=== PATIENT | male | born 1960 | race Caucasian/White ===

== ENCOUNTER 2016-12-16 13:06 | Inpatient (IN) | payer OTHER ==
[2016-12-16] VITALS (9 sets, daily range): BP systolic 130–142; BP diastolic 75–85; PULSE 97–112; TEMP 37–37.8; O2SAT 96–98; BMI 28.7
[~2016-12-16] VITALS: Ht 170.2 cm; Wt 83.1 kg
[2016-12-16] MEDS ORDERED: LIDOCAINE/EPINEPHRINE 1% 20 ML VIAL INFIL ONE (13:30)
--- NOTE | 2016-12-16 13:45 | EMERGENCY ROOM VISIT NOTE ---
History First contact with patient: 13:22 Chief Complaint: ELBOW PAIN/INJURY Stated Complaint: L ELBOW INFECTION/PAINB History of Present Illness The patient is a 56 year old male who presents to the Emergency Room with complaints of left arm infection started about one week ago. 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 He initially was treating the scratch at home with antibiotic ointment, but then his arm started to become swollen and more painful. He did see his PCP 2 days ago, who placed him on Bactrim. Patient has had 5 doses of the Bactrim, and states no improvement, and now the swelling has spread down to his fingers. He describes the pain as aching, constant, worse with movement, 5/10. He has taken Advil for the pain which does help. He is unable to fully straighten the elbow due to pain and swelling. He has noticed some drainage from the elbow wound that he describes as "pus." He denies fevers/chills, nausea/vomiting, dizziness or passing out, chest pain, shortness of breath, numbness or tingling in the arm. His tetanus is not up to date. He denies any diagnosed medical problems, but does state "it's been a while since I've been checked for anything." Review of Systems A complete 10 point review of systems was reviewed with the patient with pertinent positives and negatives as per history of present illness. All else were negative. Past Medical/Surgical History Medical Problems: (1) Failure of outpatient treatment (2) Left arm cellulitis Social History Smoking Status: Never Smoker Current/Historical Medications No Active Prescriptions or Reported Meds Allergies Coded Allergies: No Known Allergies (Unverified , 12/16/16) Physical Exam Vital Signs Date Time Temp Pulse Resp B/P (MAP) Pulse Ox O2 Delivery O2 Flow Rate FiO2 12/16/16 15:10 82 16 134/72 96 Room Air 12/16/16 14:13 96 Room Air 12/16/16 13:11 37.1 113 18 129/77 96 Room Air Physical Exam CONSTITUTIONAL: No acute distress. Well appearing and well nourished. Alert and oriented X 4 with normal affect. HEENT: Normocephalic, atraumatic. Pupils equal, round and reactive to light, EOMI. TMs normal. Pharynx normal. NECK: Supple, full active range of motion without discomfort. RESPIRATORY: Clear to auscultation bilaterally with no wheezing, crackles, rhonchi or stridor. Equal expansion bilaterally. CARDIOVASCULAR: Regular rate and rhythm with no murmurs, rubs or gallops. Normal peripheral perfusion. No edema. GASTROINTESTINAL: Soft, nontender, nondistended. Bowel sounds present in all quadrants. MUSCULOSKELETAL: There is circumferential cellulitis noted to the entire left arm from the axilla extending to the wrist, 2+ pitting edema in the entire extremity, swelling extends to the fingers with decreased range of motion and unable to make a closed fist. Significant erythema and swelling with fluctuance over the posterior elbow and surrounding tissues, scabbed abrasion noted approximately 3 finger breadths below the elbow joint. No active drainage noted at this time. Most tender over the elbow joint and tracking down the forearm anteriorly. 2+ radial pulses, brisk cap refill, normal sensation. Increased pain with flexion of the elbow, unable to fully extend the elbow due to pain and stiffness. INTEGUMENTARY: No rash or other significant dermatologic conditions noted. NEUROLOGIC: Cranial nerves II-XII grossly intact. No focal neurologic deficits noted. Medical Decision & Procedures ER Provider Diagnostic Interpretation: LEFT ELBOW 3 VIEWS CLINICAL HISTORY: Cellulitis. FINDINGS: 3 views of the left elbow are obtained. No prior studies are available for comparison at the time of dictation. The skeletal structures are well mineralized. No fracture is seen. The joint spaces are maintained. No joint effusion is identified. Enthesophytes are noted along the lateral humeral epicondyle. Spurring is present lung the medial joint space. Soft tissue edema is present around the elbow, greatest dorsally. No subcutaneous gas is suggested. IMPRESSION: Soft tissues swelling with no acute bony abnormality seen in the left elbow. Laboratory Results 12/16/16 13:50 Red Blood Count 4.61, Mean Corpuscular Volume 80.9, Mean Corpuscular Hemoglobin 29.1, Mean Corpuscular Hemoglobin Concent 35.9, Mean Platelet Volume 8.8, Neutrophils (%) (Auto) 85.4, Lymphocytes (%) (Auto) 4.9, Monocytes (%) (Auto) 9.2, Eosinophils (%) (Auto) 0.0, Basophils (%) (Auto) 0.0, Neutrophils # (Auto) 18.27, Lymphocytes # (Auto) 1.06, Monocytes # (Auto) 1.98, Eosinophils # (Auto) 0.01, Basophils # (Auto) 0.01 12/16/16 13:50 Test 12/16/16 13:50 White Blood Count 21.44 K/uL (4.8-10.8) Red Blood Count 4.61 M/uL (4.7-6.1) Hemoglobin 13.4 g/dL (14.0-18.0) Hematocrit 37.3 % (42-52) Mean Corpuscular Volume 80.9 fL (80-100) Mean Corpuscular Hemoglobin 29.1 pg (25-34) Mean Corpuscular Hemoglobin Concent 35.9 g/dl (32-36) Platelet Count 326 K/uL (130-400) Mean Platelet Volume 8.8 fL (7.4-10.4) Neutrophils (%) (Auto) 85.4 % Lymphocytes (%) (Auto) 4.9 % Monocytes (%) (Auto) 9.2 % Eosinophils (%) (Auto) 0.0 % Basophils (%) (Auto) 0.0 % Neutrophils # (Auto) 18.27 K/uL (1.4-6.5) Lymphocytes # (Auto) 1.06 K/uL (1.2-3.4) Monocytes # (Auto) 1.98 K/uL (0.11-0.59) Eosinophils # (Auto) 0.01 K/uL (0-0.5) Basophils # (Auto) 0.01 K/uL (0-0.2) RDW Standard Deviation 34.3 fL (36.4-46.3) RDW Coefficient of Variation 11.8 % (11.5-14.5) Immature Granulocyte % (Auto) 0.5 % Immature Granulocyte # (Auto) 0.11 K/uL (0.00-0.02) Microcytosis PRESENT Erythrocyte Sedimentation Rate 58 mm/hr (0-14) Prothrombin Time 12.0 SECONDS (9.0-12.0) Prothromb Time International Ratio 1.1 (0.9-1.1) Activated Partial Thromboplast Time 30.3 SECONDS (21.0-31.0) Partial Thromboplastin Ratio 1.2 Anion Gap 15.0 mmol/L (3-11) Est Creatinine Clear Calc Drug Dose 88.9 ml/min Estimated GFR () 100.9 Estimated GFR (Non- 87.1 BUN/Creatinine Ratio 19.9 (10-20) Lactic Acid Level 1.6 mmol/L (0.4-2.0) Calcium Level 8.7 mg/dl (8.5-10.1) Total Bilirubin 0.7 mg/dl (0.2-1) Direct Bilirubin 0.3 mg/dl (0-0.2) Aspartate Amino Transf (AST/SGOT) 13 U/L (15-37) Alanine Aminotransferase (ALT/SGPT) 17 U/L (12-78) Alkaline Phosphatase 90 U/L (45-117) C-Reactive Protein 31.20 mg/dl (0-0.29) Total Protein 7.1 gm/dl (6.4-8.2) Albumin 2.3 gm/dl (3.4-5.0) Beta-Hydroxybutyric Acid 45.57 mg/dL (0.2-2.81) Medications Administered Medications (Trade) Dose Ordered Sig/Rj Route Start Time Stop Time Status Last Admin Dose Admin Sodium Chloride 2,000 ml @ 999 mls/hr Q2H1M STAT IV 12/16/16 14:20 12/16/16 16:20 DC 12/16/16 15:07 999 MLS/HR Vancomycin HCl 2000 mg/Sodium Chloride 540 ml @ 200 mls/hr 1435 STAT IV 12/16/16 14:35 12/16/16 17:16 DC 12/16/16 15:07 200 MLS/HR Diphtheria/ Pertussis/Tetanus Vacc (Adacel Inj) 0.5 ml ONCE ONCE IM. 12/16/16 15:45 12/16/16 15:46 DC 12/16/16 17:11 0.5 ML Piperacillin Sod/ Tazobactam Sod (Zosyn Iv) 4.5 gm NOW STAT IV 12/16/16 15:37 12/16/16 15:39 DC 12/16/16 18:58 4.5 GM Procedure Verbal consent was obtained to perform the procedure. After saline and Betadine cleansing and 1 mL of 1% buffered lidocaine with epinephrine anesthesia , a 2cm incision was made over the most fluctuant area over the posterior elbow with a number 15 scalpel blade. A large amount of bloody and purulent material was released with more expressed by pressure. A swab was obtained for culture. 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 Copious purulent drainage from the wound noted, and continues to drain significantly when pressure is applied to the forearm. Bedside ultrasound of the forearm concerning for fluid collections tracking along the anterior forearm as well. Drainage was ceased at this point given the large amount of purulence and concern for deeper involvement. The cavity was not irrigated or packed. An occlusive sterile dressing was applied to the incision. Plans to consult orthopedic surgery for possible surgical washout given the extensive infection. The patient tolerated this procedure well. ECG Indication: tachycardia Rate (beats per minute): 109 Rhythm: sinus tachycardia Findings: no acute ischemic change, no ectopy Comparison ECG Date: no prior available Medical Decision CC: Patient presenting with complaint of left arm pain and swelling Interpretation of Labs: Significant leukocytosis with left shift, not anemic, significant hyperglycemia with presence of serum ketones which may be suggestive of undiagnosed diabetes (HgbA1c pending), hyponatremia and hypochloremia, with upper limits of normal potassium (5.1), normal renal function, normal liver function. Significantly elevated inflammatory markers. Lactic acid level within normal limits. Blood cultures and wound culture pending. Differential Diagnosis: Includes, but not limited to cellulitis, abscess, osteomyelitis, tenosynovitis, necrotizing fasciitis, pseudomonal infection, new- onset diabetes, sepsis Medication Reconciliation: I attest that I have personally reviewed the patient' s current medication list. Vital signs review: I reviewed the patient's vital signs and interpret them as follows: T: Afebrile; BP: normotensive; HR: Tachycardic; RR: Within normal limits; Pulse Ox: Within normal limits on room air. Summary: Patient was evaluated at bedside, history of physical exam performed. Patient is alert and cooperative, nontoxic appearing and in no distress. Patient noted to be tachycardic on initial vital signs. Circumferential cellulitis of the entire left arm extending from the axilla to the wrist with pitting edema, most significant over the posterior elbow joint with fluctuance. No palpable crepitus, pain out of proportion, neurovascular compromise, or history of rapid spreading to suspect necrotizing fasciitis and patient is generally well-appearing. Orders were placed at bedside for labs including lactic acid and blood cultures , x-rays of the entire left arm to evaluate for cellulitis and possible retained foreign body. Labs concerning for significant leukocytosis with left shift as well as significantly elevated inflammatory markers. I also suspect undiagnosed diabetes given significant hyperglycemia and serum ketones. HgbA1c pending. X-rays of the entire left arm showed diffuse soft tissue swelling without concerns for osteomyelitis, air, or foreign body. Bedside ultrasound performed to identify fluid collection. I & D performed, given the significant amount of purulent drainage and apparently tracking into the forearm, decision was made to consult orthopedic surgery for possible washout. See procedure note for more details. Based on physical exam, I do also have some concern for infection into the elbow joint. IV vancomycin and Zosyn ordered for broad coverage. Blood cultures and wound culture collected prior to antibiotics being given. Tetanus was updated. Patient discussed with Dr. Argueta, who also evaluated the patient and agrees with my assessment and plan. I spoke with Dr. Folres, orthopedic surgery, on the phone at 4 PM and relayed to him the patient's clinical condition and my concern for significant infection of the left arm. He requests hospitalist admission and he will come to evaluate the patient for possible surgical intervention today. Patient reassessed multiple times throughout ED stay, he remained in stable condition without any complaints. I did discuss with the patient and his the plan for admission, patient is agreeable. Patient will be admitted to the hospitalist service, Dr. Joseph, with possible plans by Dr. Flores for surgical washout today. Impression Primary Impression: Left arm cellulitis Departure Information Dispostion Admitted as an inpatient Condition FAIR Prescriptions No Active Prescriptions or Reported Meds Referrals No Doctor, Assigned (PCP) Patient Instructions My [facility]
[2016-12-16 14:07] LABS: HEMATOCRIT 37.3 % (42-52); MEAN CELL VOLUME 80.9 fL (80-100); MEAN CORPUSCULAR HEMOGLOBIN 29.1 pg (25-34); MEAN CORPUSCULAR HGB CONC 35.9 g/dl (32-36); MEAN PLATELET VOLUME 8.8 fL (7.4-10.4); PLATELET COUNT 326 K/uL (130-400); RED BLOOD COUNT 4.61 M/uL (4.7-6.1); WHITE BLOOD COUNT 21.44 K/uL (4.8-10.8)
[2016-12-16 14:17] LABS: INR 1.1 (0.9-1.1); PARTIAL THROMBOPLASTIN RATIO 1.2
[2016-12-16] MEDS ORDERED: SODIUM CHLORIDE 0.9% 1000ML 2,000 ML IV STA (14:20)
[2016-12-16] MEDS ORDERED: VANCOMYCIN INJ 2,000 MG in SODIUM CHLORIDE 0.9% 500ML 500 ML IV STA (14:35)
[2016-12-16 14:36] LABS: BASO ABS # 0.01 K/uL (0-0.2); COMPLETE YES; IG% 0.5 %; LYMPH % 4.9 %; LYMPH ABS # 1.06 K/uL (1.2-3.4); MICROCYTOSIS PRESENT; MONO % 9.2 %; NEUT % 85.4 %
[2016-12-16 14:45] LABS: BUN/CREATININE RATIO 19.9 (10-20); C-REACTIVE PROTEIN 31.2 mg/dl (0-0.29); CALCIUM 8.7 mg/dl (8.5-10.1); CREATININE 0.98 mg/dl (0.60-1.40); POTASSIUM 5.1 mmol/L (3.5-5.1)
--- NOTE | 2016-12-16 14:52 | DIAGNOSTIC IMAGING REPORT ---
LEFT ELBOW 3 VIEWS CLINICAL HISTORY: Cellulitis. FINDINGS: 3 views of the left elbow are obtained. No prior studies are available for comparison at the time of dictation. The skeletal structures are well mineralized. No fracture is seen. The joint spaces are maintained. No joint effusion is identified. Enthesophytes are noted along the lateral humeral epicondyle. Spurring is present lung the medial joint space. Soft tissue edema is present around the elbow, greatest dorsally. No subcutaneous gas is suggested. IMPRESSION: Soft tissues swelling with no acute bony abnormality seen in the left elbow. Electronically signed by: Jordan Frye M.D. 12/16/2016 2:50 PM Dictated Date/Time: 12/16/2016 2:49 PM
[2016-12-16 15:03] LABS: BETA-HYDROXYBUTYRATE 45.57 mg/dL (0.2-2.81)
--- NOTE | 2016-12-16 15:04 | DIAGNOSTIC IMAGING REPORT ---
LEFT HUMERUS 2 VIEWS CLINICAL HISTORY: Cellulitis. FINDINGS: AP and lateral views of the left humerus are obtained. No prior studies are available for comparison at the time of dictation. The skeletal structures are well mineralized. There is no radiographic evidence of left humeral fracture. Mild arthritic change is present in the greater tuberosity of the humeral head. The left elbow and shoulder joints are grossly maintained. Soft tissue edema is noted. No subcutaneous gas is identified. IMPRESSION: Soft tissue swelling with no radiographic evidence of left humeral fracture. Electronically signed by: Jordan Frye M.D. 12/16/2016 3:03 PM Dictated Date/Time: 12/16/2016 3:02 PM
--- NOTE | 2016-12-16 15:15 | DIAGNOSTIC IMAGING REPORT ---
LEFT HAND 3 VIEWS CLINICAL HISTORY: Cellulitis. FINDINGS: 3 views of the left hand are obtained. No prior studies are available for comparison at the time of dictation. The skeletal structures are well mineralized. No fracture is seen. The joint spaces of the hand are well-maintained. Soft tissue edema is noted, greatest dorsally. No subcutaneous gas is seen. IMPRESSION: Soft tissue swelling with no acute bony abnormality seen in the left hand. Electronically signed by: Jordan Frye M.D. 12/16/2016 3:13 PM Dictated Date/Time: 12/16/2016 3:13 PM
--- NOTE | 2016-12-16 15:16 | DIAGNOSTIC IMAGING REPORT ---
LEFT FOREARM 2 VIEWS CLINICAL HISTORY: Cellulitis. FINDINGS: AP and lateral views of the left forearm are obtained. No prior studies are available for comparison at the time of dictation. The Skeletal structures are well mineralized. There is no radiographic evidence of left forearm fracture. The elbow and wrist joints are grossly preserved. Soft tissue edema is present in the left forearm. No subcutaneous gas is identified. IMPRESSION: Soft tissue swelling with no acute bony abnormality seen in the left forearm. Electronically signed by: Jordan Frye M.D. 12/16/2016 3:15 PM Dictated Date/Time: 12/16/2016 3:14 PM
[2016-12-16] MEDS ORDERED: PIPERACILLIN/TAZOBACTAM 4.5 GM/100ML D5W IV STA (15:37)
[2016-12-16] MEDS ORDERED: DIPHTHERIA/TETANUS/PERTUSSIS 0.5 ML SYR/VIAL IM. ONE (15:45)
--- NOTE | 2016-12-16 16:00 | EMERGENCY ROOM VISIT NOTE ---
ED Visit Note First contact with patient: 13:22 56-year-old male with infection of his left elbow was fully evaluated by Rhonda Miller NP. Please see her note. I also independently evaluated the patient. I &D of the elbow reveals a large amount of free flowing pus. The patient's white count is elevated. The patient will require admission and orthopedic evaluation. The patient was placed on IV antibiotics here in the ED after blood and elbow cultures were obtained.
[2016-12-16] MEDS ORDERED: TRAMADOL HCL 50 MG TAB PO PRN ×2 (16:45)
[2016-12-16] MEDS ORDERED: KETOROLAC TROMETHAMINE 30 MG/ML VIAL IV PRN (16:45)
[2016-12-16] MEDS ORDERED: ZOLPIDEM TARTRATE 5 MG TAB PO PRN (16:45)
[2016-12-16] MEDS ORDERED: ONDANSETRON INJ 2 MG/ML 2 ML VIAL IV PRN ×3 (16:45→20:00)
--- NOTE | 2016-12-16 17:41 | History and Physical ---
History & Physical Date Dec 16, 2016. 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 He does not have a known history of diabetes. He notes chills. No complaints of fevers Past Medical/Surgical History Medical Problems: (1) Failure of outpatient treatment (2) Left arm cellulitis Additional History Hepatic Disease: No Endocrine Disorder: No Kidney Disease: No Hypertension: No Heart Disease: No Bleeding Tendencies: No Infectious Diseases: No Allergies Coded Allergies: No Known Allergies (Unverified , 12/16/16) Home Medications No Active Prescriptions or Reported Meds Physical Examination Skin: warm/dry Eyes: normal inspection ENT: normal ENT inspection Respiratory/Chest: no respiratory distress Addiitonal Comments: Left forearm exam shows supple range of motion of the elbow in a short arc without significant discomfort. He has fluctuance and swelling over the posterior aspect of the elbow both in the olecranon bursa as well as in the mid aspect of the forearm extending to the anterior aspect of the forearm. He superficial abrasions are seen over the forearm, has surrounding erythema. He can flex and extend the wrist without discomfort. His negative knavel signs. He has axillary lymphadenopathy Diagnosis Left forearm abscess undiagnosed diabetes Plan of Treatment The patient exhibits evidence of abscess with gross purulent drainage from the posterior elbow consistent with possible septic workup bursitis as well as forearm abscess. He has a white count of 21 and likely has undiagnosed diabetes with sugars in the 400 range. My recommendation for medical admission for control of his sugars and plan for surgical irrigation and debridement shortly. I discussed risks benefits and reasonable outcomes, I discussed possibility of further surgery needed tendon nerve injury etc. is agreeable to proceed with surgical intervention
[2016-12-16] MEDS ORDERED: PIPERACILL/TAZOBAC CONSULT ACTIVE PRN (18:00)
[2016-12-16] MEDS ORDERED: VANCOMYCIN CONSULT ACTIVE PRN (18:00)
--- NOTE | 2016-12-16 18:13 | History and Physical ---
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 He used topical antibiotic ointment over the next week however, about one week ago he noted that the arm was starting to become flamed, round, warm and swollen. It is his PCP 2 days ago, who placed him on Bactrim, which she's had 5 doses so far without improvement, and notes that the swelling is now extended further down his arm. The pain is constant, aching and worse with movement. Advil does help with some relief. He is not able to fully extend his elbow, and he has noted some drainage from the elbow itself. Past Medical/Surgical History None Family History Noncontributory Social History Smoking Status: Never Smoker Smokeless Tobacco Use: No Alcohol Use: socially Drug Use: none Marital Status: Housing status: lives with family Occupational Status: employed Immunizations History of Influenza Vaccine: Unknown History of Tetanus Vaccine?: Yes (given today in the ED.) History of Pneumococcal: Unknown History of Hepatitis B Vaccine: Unknown Multi-Drug Resistant Organisms History of MDRO: No Allergies Coded Allergies: No Known Allergies (Unverified , 12/16/16) Home Medications No Active Prescriptions or Reported Meds Review of Systems The patient denies chest pain, palpitations, shortness of breath, cough, lower extremity swelling, sore throat, fevers, chills, sweats, weight change, fatigue , nausea, vomiting, abdominal pain, pelvic pain, blood in urine or stool, dysuria, urinary frequency or urgency, lightheadedness, dizziness, headache, memory loss, imbalance, focal or generalized weakness, numbness or tingling in legs, generalized arthralgias or myalgias, back or neck pain, night sweats, or allergy symptoms. The review of systems is otherwise negative other than for that already noted above, and at least 10 systems have been reviewed. Physical Exam Vital Signs Date Time Temp Pulse Resp B/P (MAP) Pulse Ox O2 Delivery O2 Flow Rate FiO2 12/16/16 17:40 37.1 112 20 130/75 (93) 96 Room Air 12/16/16 17:20 87 20 55/96 100 12/16/16 15:10 82 16 134/72 96 Room Air 12/16/16 14:13 96 Room Air 12/16/16 13:11 37.1 113 18 129/77 96 Room Air The patient is awake, well-developed and adequately nourished, alert and oriented 3, normocephalic and atraumatic, lying in bed and in no acute distress. HEENT--PERRL, EOMI, mucous membranes and oropharynx dry, face is flushed Neck--supple, no JVD or bruits, thyroid normal, trachea midline, no adenopathy. Heart--normal S1 and S2, no extra beats, no murmurs, rubs or gallops. Lungs--clear bilaterally with good air movement, no respiratory distress, no accessory muscle use. Abdomen--normal bowel sounds and soft, nontender and nondistended, no hernias or masses, no organomegaly. Extremities/Dermatologic--bilateral lower extremity and right upper extremity no cyanosis, clubbing or edema. Left upper extremity with swelling, redness, warmth, tenderness left forearm with draining lesion at the elbow. Neurologic--cranial nerves II through XII grossly intact, motor and sensory examination normal. Rheumatologic--decreased flexion and extension of left upper extremity Psychiatric--normal affect. Diagnostics Laboratory Results Results Past 24 Hours Test 12/16/16 13:50 Range/Units White Blood Count 21.44 4.8-10.8 K/uL Red Blood Count 4.61 4.7-6.1 M/uL Hemoglobin 13.4 14.0-18.0 g/dL Hematocrit 37.3 42-52 % Mean Corpuscular Volume 80.9 80-100 fL Mean Corpuscular Hemoglobin 29.1 25-34 pg Mean Corpuscular Hemoglobin Concent 35.9 32-36 g/dl Platelet Count 326 130-400 K/uL Mean Platelet Volume 8.8 7.4-10.4 fL Neutrophils (%) (Auto) 85.4 % Lymphocytes (%) (Auto) 4.9 % Monocytes (%) (Auto) 9.2 % Eosinophils (%) (Auto) 0.0 % Basophils (%) (Auto) 0.0 % Neutrophils # (Auto) 18.27 1.4-6.5 K/uL Lymphocytes # (Auto) 1.06 1.2-3.4 K/uL Monocytes # (Auto) 1.98 0.11-0.59 K/uL Eosinophils # (Auto) 0.01 0-0.5 K/uL Basophils # (Auto) 0.01 0-0.2 K/uL RDW Standard Deviation 34.3 36.4-46.3 fL RDW Coefficient of Variation 11.8 11.5-14.5 % Immature Granulocyte % (Auto) 0.5 % Immature Granulocyte # (Auto) 0.11 0.00-0.02 K/uL Microcytosis PRESENT Erythrocyte Sedimentation Rate 58 0-14 mm/hr Prothrombin Time 12.0 9.0-12.0 SECONDS Prothromb Time International Ratio 1.1 0.9-1.1 Activated Partial Thromboplast Time 30.3 21.0-31.0 SECONDS Partial Thromboplastin Ratio 1.2 Sodium Level 127 136-145 mmol/L Potassium Level 5.1 3.5-5.1 mmol/L Chloride Level 91 98-107 mmol/L Carbon Dioxide Level 21 21-32 mmol/L Anion Gap 15.0 3-11 mmol/L Blood Urea Nitrogen 20 7-18 mg/dl Creatinine 0.98 0.60-1.40 mg/dl Est Creatinine Clear Calc Drug Dose 88.9 ml/min Estimated GFR () 100.9 Estimated GFR (Non- 87.1 BUN/Creatinine Ratio 19.9 10-20 Random Glucose 393 70-99 mg/dl Lactic Acid Level 1.6 0.4-2.0 mmol/L Calcium Level 8.7 8.5-10.1 mg/dl Total Bilirubin 0.7 0.2-1 mg/dl Direct Bilirubin 0.3 0-0.2 mg/dl Aspartate Amino Transf (AST/SGOT) 13 15-37 U/L Alanine Aminotransferase (ALT/SGPT) 17 12-78 U/L Alkaline Phosphatase 90 45-117 U/L C-Reactive Protein 31.20 0-0.29 mg/dl Total Protein 7.1 6.4-8.2 gm/dl Albumin 2.3 3.4-5.0 gm/dl Beta-Hydroxybutyric Acid 45.57 0.2-2.81 mg/dL Microbiology Results 12/16/16 Blood Culture, Received Pending 12/16/16 Blood Culture, Received Pending 12/16/16 Gram Stain, Received Pending 12/16/16 Wound Culture, Received Pending Diagnostic Radiology Patient Name: TARI BERRY Unit Number: [id number] Dictated: 12/16/161501 Transcribed: 12/16/161501 EV Printed Date/Time: [~ rep prt dt]/[~ rep prt tm] [~ rep ct labl] - [~ rep ct ivnm] [facility] [place] [address] Dictated: 12/16/161501 Transcribed: 12/16/16 150 EV Printed Date/Time: [~ rep prt dt]/[~ rep prt tm] [~ rep ct labl] - [~ rep ct ivnm] [~ rep ct add3]] LEFT HUMERUS 2 VIEWS CLINICAL HISTORY: Cellulitis. FINDINGS: AP and lateral views of the left humerus are obtained. No prior studies are available for comparison at the time of dictation. The skeletal structures are well mineralized. There is no radiographic evidence of left humeral fracture. Mild arthritic change is present in the greater tuberosity of the humeral head. The left elbow and shoulder joints are grossly maintained. Soft tissue edema is noted. No subcutaneous gas is identified. IMPRESSION: Soft tissue swelling with no radiographic evidence of left humeral fracture. Electronically signed by: Jordan Frye M.D. 12/16/2016 3:03 PM Dictated Date/Time: 12/16/2016 3:02 PM The status of this report is Signed. Draft = Not yet reviewed or approved by Radiologist. Signed = Reviewed and approved by Radiologist. <AttendingPhy></AttendingPhy> <FamilyPhy>No Doctor, Assigned</FamilyPhy> < PrimaryPhy>No Doctor, Assigned</PrimaryPhy> <UnitNumber>[id number]</UnitNumber> <VisitNumber>[id number]</VisitNumber> <PatientName>TARI BERRY</PatientName > <DateOfBirth>1960</DateOfBirth> <Location>[facility]</Location> <ServiceDate> 12/16/16</ServiceDate> <MNE>ESINDI</MNE> <OrderingPhy>Rhonda Miller</ OrderingPhy> <OrderingPhyMNE>f rep ord dr garcia</OrderingPhyMNE> <DictatingPhyMNE> f rep dict dr garcia</DictatingPhyMNE> <CCListMNE>f rep ct mne</CCListMNE> < AdmittingPhyMNE>f pt admit dr garcia</AdmittingPhyMNE> <AttendingPhyMNE>f pt attend dr garcia</AttendingPhyMNE> <ConsultingPhyMNE>f pt consult dr garcia</ConsultingPhyMNE> <FamilyPhyMNE>f pt fam dr garcia</FamilyPhyMNE> <OtherPhyMNE>f pt other dr garcia</OtherPhyMNE> < PrimaryPhyMNE>f pt prim care dr garcia</PrimaryPhyMNE> <ReferringPhyMNE>f pt referring dr garcia</ReferringPhyMNE> Patient Name: TARI BERRY Unit Number: [id number] Dictated: 12/16/161512 Transcribed: 12/16/161512 EV Printed Date/Time: [~ rep prt dt]/[~ rep prt tm] [~ rep ct labl] - [~ rep ct ivnm] [facility] Radiology Department [place] [id number] Dictated: 12/16/161512 Transcribed: 12/16/161512 EV Printed Date/Time: [~ rep prt dt]/[~ rep prt tm] [~ rep ct labl] - [~ rep ct ivnm] [~ rep ct add3]] LEFT HAND 3 VIEWS CLINICAL HISTORY: Cellulitis. FINDINGS: 3 views of the left hand are obtained. No prior studies are available for comparison at the time of dictation. The skeletal structures are well mineralized. No fracture is seen. The joint spaces of the hand are well-maintained. Soft tissue edema is noted, greatest dorsally. No subcutaneous gas is seen. IMPRESSION: Soft tissue swelling with no acute bony abnormality seen in the left hand. Electronically signed by: Jordan Frye M.D. 12/16/2016 3:13 PM Dictated Date/Time: 12/16/2016 3:13 PM The status of this report is Signed. Draft = Not yet reviewed or approved by Radiologist. Signed = Reviewed and approved by Radiologist. <AttendingPhy></AttendingPhy> <FamilyPhy>No Doctor, Assigned</FamilyPhy> < PrimaryPhy>No Doctor, Assigned</PrimaryPhy> <UnitNumber>[id number]</UnitNumber> <VisitNumber>[id number]</VisitNumber> <PatientName>TARI BERRY</PatientName > <DateOfBirth>1960</DateOfBirth> <Location>[facility]</Location> <ServiceDate> 12/16/16</ServiceDate> <MNE>ESINDI</MNE> <OrderingPhy>Rhonda Miller</ OrderingPhy> <OrderingPhyMNE>f rep ord dr garcia</OrderingPhyMNE> <DictatingPhyMNE> f rep dict dr garcia</DictatingPhyMNE> <CCListMNE>f rep ct mne</CCListMNE> < AdmittingPhyMNE>f pt admit dr garcia</AdmittingPhyMNE> <AttendingPhyMNE>f pt attend dr garcia</AttendingPhyMNE> <ConsultingPhyMNE>f pt consult dr garcia</ConsultingPhyMNE> <FamilyPhyMNE>f pt fam dr agrcia</FamilyPhyMNE> <OtherPhyMNE>f pt other dr garcia</OtherPhyMNE> < PrimaryPhyMNE>f pt prim care dr garcia</PrimaryPhyMNE> <ReferringPhyMNE>f pt referring dr garcia</ReferringPhyMNE> Patient Name: TARI BERRY Unit Number: [id number] Dictated: 12/16/161513 Transcribed: 12/16/161513 EV Printed Date/Time: [~ rep prt dt]/[~ rep prt tm] [~ rep ct labl] - [~ rep ct ivnm] [facility] [place] [address] Dictated: 12/16/161513 Transcribed: 12/16/161513 EV Printed Date/Time: [~ rep prt dt]/[~ rep prt tm] [~ rep ct labl] - [~ rep ct ivnm] [~ rep ct add3]] LEFT FOREARM 2 VIEWS CLINICAL HISTORY: Cellulitis. FINDINGS: AP and lateral views of the left forearm are obtained. No prior studies are available for comparison at the time of dictation. The Skeletal structures are well mineralized. There is no radiographic evidence of left forearm fracture. The elbow and wrist joints are grossly preserved. Soft tissue edema is present in the left forearm. No subcutaneous gas is identified. IMPRESSION: Soft tissue swelling with no acute bony abnormality seen in the left forearm. Electronically signed by: Jordan Frye M.D. 12/16/2016 3:15 PM Dictated Date/Time: 12/16/2016 3:14 PM The status of this report is Signed. Draft = Not yet reviewed or approved by Radiologist. Signed = Reviewed and approved by Radiologist. <AttendingPhy></AttendingPhy> <FamilyPhy>No Doctor, Assigned</FamilyPhy> < PrimaryPhy>No Doctor, Assigned</PrimaryPhy> <UnitNumber>[id number]</UnitNumber> <VisitNumber>[id number]</VisitNumber> <PatientName>TARI BERRY</PatientName > <DateOfBirth>1960</DateOfBirth> <Location>[facility]</Location> <ServiceDate> 12/16/16</ServiceDate> <MNE>ESINDI</MNE> <OrderingPhy>Rhonda Miller</ OrderingPhy> <OrderingPhyMNE>f rep ord dr garcia</OrderingPhyMNE> <DictatingPhyMNE> f rep dict dr garcia</DictatingPhyMNE> <CCListMNE>f rep ct mne</CCListMNE> < AdmittingPhyMNE>f pt admit dr garcia</AdmittingPhyMNE> <AttendingPhyMNE>f pt attend dr garcia</AttendingPhyMNE> <ConsultingPhyMNE>f pt consult dr garcia</ConsultingPhyMNE> <FamilyPhyMNE>f pt fam dr garcia</FamilyPhyMNE> <OtherPhyMNE>f pt other dr garcia</OtherPhyMNE> < PrimaryPhyMNE>f pt prim care dr garcia</PrimaryPhyMNE> <ReferringPhyMNE>f pt referring dr garcia</ReferringPhyMNE> Patient Name: TARI BERRY Unit Number: [id number] Dictated: 12/16/161448 Transcribed: 12/16/161448 EV Printed Date/Time: [~ rep prt dt]/[~ rep prt tm] [~ rep ct labl] - [~ rep ct ivnm] [facility] Radiology Department [place] [id number] Dictated: 12/16/161448 Transcribed: 12/16/161448 EV Printed Date/Time: [~ rep prt dt]/[~ rep prt tm] [~ rep ct labl] - [~ rep ct ivnm] [~ rep ct add3]] LEFT ELBOW 3 VIEWS CLINICAL HISTORY: Cellulitis. FINDINGS: 3 views of the left elbow are obtained. No prior studies are available for comparison at the time of dictation. The skeletal structures are well mineralized. No fracture is seen. The joint spaces are maintained. No joint effusion is identified. Enthesophytes are noted along the lateral humeral epicondyle. Spurring is present lung the medial joint space. Soft tissue edema is present around the elbow, greatest dorsally. No subcutaneous gas is suggested. IMPRESSION: Soft tissues swelling with no acute bony abnormality seen in the left elbow. Electronically signed by: Jordan Frye M.D. 12/16/2016 2:50 PM Dictated Date/Time: 12/16/2016 2:49 PM The status of this report is Signed. Draft = Not yet reviewed or approved by Radiologist. Signed = Reviewed and approved by Radiologist. <AttendingPhy></AttendingPhy> <FamilyPhy>No Doctor, Assigned</FamilyPhy> < PrimaryPhy>No Doctor, Assigned</PrimaryPhy> <UnitNumber>[id number]</UnitNumber> <VisitNumber>[id number]</VisitNumber> <PatientName>TARI BERRY</PatientName > <DateOfBirth>1960</DateOfBirth> <Location>[facility]</Location> <ServiceDate> 12/16/16</ServiceDate> <MNE>ESINDI</MNE> <OrderingPhy>Rhonda Miller</ OrderingPhy> <OrderingPhyMNE>f rep ord dr garcia</OrderingPhyMNE> <DictatingPhyMNE> f rep dict dr garcia</DictatingPhyMNE> <CCListMNE>f rep ct mne</CCListMNE> < AdmittingPhyMNE>f pt admit dr garcia</AdmittingPhyMNE> <AttendingPhyMNE>f pt attend dr garcia</AttendingPhyMNE> <ConsultingPhyMNE>f pt consult dr garcia</ConsultingPhyMNE> <FamilyPhyMNE>f pt fam dr garcia</FamilyPhyMNE> <OtherPhyMNE>f pt other dr garcia</OtherPhyMNE> < PrimaryPhyMNE>f pt prim care dr garcia</PrimaryPhyMNE> <ReferringPhyMNE>f pt referring dr garcia</ReferringPhyMNE> EKG EKG shows sinus tachycardia 109 bpm, no acute ST-T changes. Impression Assessment and Plan Left upper extremity cellulitis--patient be admitted to the medical surgical floor, he will continue the vancomycin IV and Zosyn IV begun emergency department. Replacement IV fluids for rehydration, we'll consult Dr. Castle from orthopedics assess for possible surgical drainage. Patient did receive tetanus shot emergency department. Diabetes mellitus/hyperglycemia--blood sugar upon admission was 393. We'll check a hemoglobin A1c. We'll place on Accu-Cheks before meals and at bedtime with NovoLog coverage per scale. If testing reveals the patient is diabetic, he will need education for testing and diet and exercise. Pseudohyponatremia--secondary to elevated blood sugar. Follow serial with hydration and treatment of blood sugar. 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 Y/N: Yes Risk Level: Moderate Given or contraindicated: SCD's Social Service Consult None Apply
[2016-12-16] MEDS ORDERED: DEXTROSE 50% 50 ML SYR IV PRN (18:15)
[2016-12-16] MEDS ORDERED: GLUCAGON FOR INJ 1 MG VIAL SQ PRN (18:15)
[2016-12-16] MEDS ORDERED: GLUCOSE 40% GEL 15 GM TUBE PO PRN (18:15)
[2016-12-16] MEDS ORDERED: GLUCOSE 10 TABS/TUBE PO PRN (18:15)
--- NOTE | 2016-12-16 18:16 | Pharmacy Progress Note ---
Pharmacy Abx Initial Consult Date of Service Dec 16, 2016. Pharmacy Dosing Scope Date of Consult: 12/16/2016 Consultation requested by: Dr. Joseph Pharmacy is consulted to initiate vancomycin and Zosyn IV dosing therapy, order appropriate labs and adjust drug dose/frequency. Subjective The patient is a 56 year old male admitted on Dec 16, 2016 at 16:34. Objective Height (Feet): 5 Height (Inches): 7 Weight (Kilograms): 83.100 Vital Signs (Past 12Hrs) Vital Signs Past 12 Hours Date Time Temp Pulse Resp B/P (MAP) Pulse Ox O2 Delivery O2 Flow Rate FiO2 12/16/16 17:40 37.1 112 20 130/75 (93) 96 Room Air 12/16/16 17:20 87 20 55/96 100 12/16/16 15:10 82 16 134/72 96 Room Air 12/16/16 14:13 96 Room Air 12/16/16 13:11 37.1 113 18 129/77 96 Room Air Lab Results (24Hrs) Laboratory Tests (24 Hours) Test 12/16/16 13:50 C-Reactive Protein 31.20 mg/dl (0-0.29) H Erythrocyte Sedimentation Rate 58 mm/hr (0-14) H Lactic Acid Level 1.6 mmol/L (0.4-2.0) White Blood Count 21.44 K/uL (4.8-10.8) H Red Blood Count 4.61 M/uL (4.7-6.1) L Hemoglobin 13.4 g/dL (14.0-18.0) L Hematocrit 37.3 % (42-52) L Mean Corpuscular Volume 80.9 fL (80-100) Mean Corpuscular Hemoglobin 29.1 pg (25-34) Mean Corpuscular Hemoglobin Concent 35.9 g/dl (32-36) Platelet Count 326 K/uL (130-400) Mean Platelet Volume 8.8 fL (7.4-10.4) Neutrophils (%) (Auto) 85.4 % Lymphocytes (%) (Auto) 4.9 % Monocytes (%) (Auto) 9.2 % Eosinophils (%) (Auto) 0.0 % Basophils (%) (Auto) 0.0 % Neutrophils # (Auto) 18.27 K/uL (1.4-6.5) H Lymphocytes # (Auto) 1.06 K/uL (1.2-3.4) L Monocytes # (Auto) 1.98 K/uL (0.11-0.59) H Eosinophils # (Auto) 0.01 K/uL (0-0.5) Basophils # (Auto) 0.01 K/uL (0-0.2) Micro Results Date/Time Source Procedure Growth Status 12/16/16 14:10 Blood Blood Culture Pending Received 12/16/16 13:50 Blood Blood Culture Pending Received 12/16/16 00:00 Abscess Arm , Left Upper Gram Stain Pending Received 12/16/16 00:00 Abscess Arm , Left Upper Wound Culture Pending Received Risk Factors for Resistance * Patient is an undiagnosed diabetic Assessment & Plan Assessment 56 year old male with an unremarkable PMH is admitted with an SSTI of his elbow. 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 He went to his PCP who prescribed him Bactrim. He took 5 doses. The erythema has spread to his fingers; he cannot move his arm as much as before due to the pain. He has noticed pus-like drainage. Plan vancomycin/Zosyn for treatment of SSTI Vancomycin IV * Loading dose: 2000 mg (24 mg/kg) * Maintenance dose: 1250 mg IV (15 mg/kg) every 10 hours (population pharmacokinetics suggest a half-life of 9 hr with an elimination constatn of 0.077 hr-1) * Goal trough level for SSTI possible MRSA : 15 to 20 mcg/mL * Trough ordered for 12/18/16 prior 0900 dose Piperacillin/tazobactam * 4.5 g bolus administered over 30 minutes, then 3.375 g IV extended infusion every 8 hours for CrCl greater than 20 mL/min O Pharmacy will continue to follow and will adjust dose/frequency as necessary. Thank you.
[2016-12-16] MEDS ORDERED: INFLUENZA ADMINISTRATION CHARGE ONE (18:30)
[2016-12-16] MEDS ORDERED: INFLUENZA VIRUS QUAD VACCINE 0.5 ML SYR IM. ONE (18:30)
[2016-12-16] MEDS ORDERED: BUPIVACAINE 0.5 % 5 MG/1 ML MPF 30ML VIAL ONE (18:36)
[2016-12-16] MEDS ORDERED: BACITRACIN 50000 UNIT VIAL ONE (18:36)
[2016-12-16] MEDS ORDERED: HYDROmorphone INJ 2 MG/ML SYR/VIAL IV PRN (18:45)
[2016-12-16] MEDS ORDERED: ATROPINE SULFATE 0.1 MG/ML 5ML SYR IV PRN (18:45)
[2016-12-16] MEDS ORDERED: LABETALOL HCL IV 5 MG/ML 20ML IV PRN (18:45)
[2016-12-16] MEDS ORDERED: PNEUMOCOCCAL ADMINISTRATION CHARGE ONE (18:45)
[2016-12-16] MEDS ORDERED: PNEUMOCOCCAL POLYSACCHARIDES 25 MCG/0.5 ML VIAL/SYR IM. ONE (18:45)
[2016-12-16] MEDS ORDERED: PROMETHAZINE HCL INJ 12.5 MG in SODIUM CHLORIDE 0.9% 50ML 50 ML IV PRN (18:45)
[2016-12-16] MEDS ORDERED: MIDAZOLAM HCL 1 MG/ML 2ML VIAL ONE (18:47)
[2016-12-16] MEDS ORDERED: FENTANYL CITRATE INJ 50 MCG/1 ML 2 ML VIAL ONE ×2 (18:48→19:24)
[2016-12-16] MEDS ORDERED: MoRPHine SULFATE PF 1 MG/ML 10 ML AMP/VIAL ONE (19:20)
[2016-12-16] MEDS ORDERED: LIDOCAINE HCL 2% 2 ML VIAL (20MG/ML) ONE (19:38)
[2016-12-16] MEDS ORDERED: PROPOFOL IV EMULSION 10 MG/ML 20 ML VIAL IV ONE (19:38)
[2016-12-16] MEDS ORDERED: ROCURONIUM BROMIDE 10 MG/ML 5 ML VIAL ONE (19:38)
[2016-12-16] MEDS ORDERED: SUCCINYLCHOLINE CHLORIDE 20 MG/ML 10 ML VIAL IV ONE (19:38)
[2016-12-16] MEDS ORDERED: ACETAMINOPHEN 325 MG TAB PO PRN (20:00)
[2016-12-16] MEDS ORDERED: MoRPHine SULFATE 2 MG/ML CARP IV PRN (20:00)
[2016-12-16] MEDS ORDERED: MoRPHine SULFATE 4 MG/ML 1 ML CARP\\VIAL IV PRN (20:00)
[2016-12-16] MEDS ORDERED: OXYCODONE/ACETAMINOPHEN 5-325 TAB PO PRN ×2 (20:00)
--- NOTE | 2016-12-16 20:06 | [facility] Operative Report ---
Operative Report Operative Date Dec 16, 2016. Pre-Operative Diagnosis Left Forearm Abscess, Olecranon bursitis Post-Operative Diagnosis Left Forearm Abscess, Olecranon bursitis Procedure(s) Performed Incision and Drainage Left Forearm, Olecranon Bursectomy Surgeon Dr. Flores Chart Computer Surgeon(s) none Estimated Blood Loss 10 mL Findings gross pus with rupture of olecasnon with ruptuer into the subcutaneous tissues Specimens Microbiology # 1- Olecranon bursa left; gram stain, routine culture and sensitivty, anaerobic/aerobic Drains none Anesthesia gen Disposition Recovery Room / PACU Indications This is a gentleman status post the patient to the forearm who presents with that. Drainage from his olecranon bursa after failure of conservative treatment. He presents for I and D with olecranon bursectomy. Description of Procedure The patient was identified in the proper procedure and site was verified. Patient was placed on table in the supine position. Patient was prepped in the standard fashion. A surgical timeout was taken and observed. The patient had a transverse open wound over the olecranon bursa extended this slightly. There is a large amount of gross pus in the area. There was gross pus in the subcutaneous tissues medially with evidence of rupture of the olecranon bursa. I performed partial olecranon bursectomy of the involved portion of the olecranon bursa. I performed irrigation and debridement of the local area. There is a large amount of gross pus encountered. This was sent for culture. I made a second separate incision over the area the patient's abrasion which had erythema. I made a longitudinal incision in the area of induration. I performed debridement of Skin and subcutaneous tissue. A small amount of gross pus was encountered consistent with a subcutaneous abscess. Irrigation and debridement of abscess was performed and I debrided the skin and subcutaneous tissue and bone. There was 1 x 1 cm and scalpels curettes and ronguers were used. Both areas were irrigated with normal saline. Both incisions were closed with 3 -0 nylon. I loosely packed both incisions dry sterile dressing was applied and patient was sent to the PACU in stable condition. I attest to the content of the Intraoperative Record and any orders documented therein. Any exceptions are noted below.
[2016-12-16] MEDS ORDERED: INSULIN HUMAN REGULAR PER UNIT 10 UNITS in SYRINGE 9.9 ML IV SCH (20:15)
[2016-12-16] MEDS ORDERED: NURSING VERBAL MED ORDER ONE (20:15)
--- NOTE | 2016-12-16 20:41 | Anesthesiology Progress Note ---
Anesthesia Post Op Note Date & Time Dec 16, 2016 at 20:40 Vital Signs Pain Intensity: 0 Vital Signs Past 12 Hours Date Time Temp Pulse Resp B/P (MAP) Pulse Ox O2 Delivery O2 Flow Rate FiO2 12/16/16 20:36 37.3 12/16/16 20:32 107 20 12/16/16 20:32 107 20 97 12/16/16 20:31 153/84 12/16/16 20:27 106 25 99 12/16/16 20:27 106 25 12/16/16 20:26 155/87 12/16/16 20:22 103 26 100 12/16/16 20:22 103 26 12/16/16 20:21 149/83 12/16/16 20:18 101 29 12/16/16 20:18 101 29 100 12/16/16 20:16 136/76 12/16/16 20:13 103 26 99 12/16/16 20:13 104 26 12/16/16 20:12 102 28 12/16/16 20:12 102 28 99 12/16/16 20:11 133/73 12/16/16 20:07 101 20 12/16/16 20:07 101 20 99 12/16/16 20:06 138/77 12/16/16 20:02 100 20 12/16/16 20:02 99 20 99 12/16/16 20:01 133/74 12/16/16 19:57 98 20 12/16/16 19:57 36.8 100 20 125/72 99 Mask 10 12/16/16 19:57 99 20 125/72 98 12/16/16 18:36 Room Air 12/16/16 17:55 96 Room Air 12/16/16 17:40 37.1 112 20 130/75 (93) 96 Room Air 12/16/16 17:20 87 20 55/96 100 12/16/16 15:10 82 16 134/72 96 Room Air 12/16/16 14:13 96 Room Air 12/16/16 13:11 37.1 113 18 129/77 96 Room Air Notes Mental Status: alert / awake / arousable, participated in evaluation Pt Amnestic to Procedure: Yes Nausea / Vomiting: adequately controlled Pain: adequately controlled Airway Patency, RR, SpO2: stable & adequate BP & HR: stable & adequate Hydration State: stable & adequate Anesthetic Complications: no major complications apparent Patient with BSG >300 prior to surgery. Insulin 10u given IV in PACU. Patient will need workup for probable diabetes and blood sugar control on floor and internal medicine is already consulted on the case to that end.
[2016-12-16] MEDS: NSS + 20MEQ KCL 1000ML 1,000 ML IV SCH (21:02)
[2016-12-16] MEDS: PIPERACILL/TAZOBAC IV 3.375 GM in DEXTROSE 5% 100ML 100 ML IV SCH (21:35)
[2016-12-16] MEDS: INSULIN ASPART 100 UNITS/ML 3 ML PEN SC SCH (21:46)
[2016-12-16] MEDS: ACETAMINOPHEN 325 MG TAB PO PRN (23:16)
[2016-12-17] VITALS (13 sets, daily range): BP systolic 119–152; BP diastolic 74–87; PULSE 99–108; TEMP 36.4–38.6; O2SAT 95–98; BMI 28.7
[2016-12-17] MEDS: VANCOMYCIN INJ 1,250 MG in SODIUM CHLORIDE 0.9% 250ML 250 ML IV SCH ×3 (01:17→20:27)
[2016-12-17] MEDS: NSS + 20MEQ KCL 1000ML 1,000 ML IV SCH ×3 (05:48→23:53)
[2016-12-17] MEDS: PIPERACILL/TAZOBAC IV 3.375 GM in DEXTROSE 5% 100ML 100 ML IV SCH ×3 (05:48→21:40)
[2016-12-17 05:51] LABS: HEMATOCRIT 33.8 % (42-52); MEAN CELL VOLUME 82.6 fL (80-100); MEAN CORPUSCULAR HEMOGLOBIN 29.1 pg (25-34); MEAN CORPUSCULAR HGB CONC 35.2 g/dl (32-36); MEAN PLATELET VOLUME 8.9 fL (7.4-10.4); PLATELET COUNT 278 K/uL (130-400); RED BLOOD COUNT 4.09 M/uL (4.7-6.1); WHITE BLOOD COUNT 17.03 K/uL (4.8-10.8)
[2016-12-17 06:31] LABS: BUN/CREATININE RATIO 25.1 (10-20); CREATININE 0.68 mg/dl (0.60-1.40); MAGNESIUM 1.8 mg/dl (1.8-2.4); POTASSIUM 4.4 mmol/L (3.5-5.1)
[2016-12-17 06:34] LABS: BASO % 0.1 %; BASO ABS # 0.02 K/uL (0-0.2); COMPLETE YES; EOS % 0.1 %; IG% 0.4 %; LYMPH % 3.8 %; LYMPH ABS # 0.65 K/uL (1.2-3.4); NEUT % 83.6 %
--- NOTE | 2016-12-17 07:17 | Orthopedic Progress Note ---
Orthopedic Progress Note Date of Service Dec 17, 2016. Subjective Post OP Day: 1 Reports: feeling well Objective N/V intact, dressing C/D/I Date Time Temp Pulse Resp B/P (MAP) Pulse Ox O2 Delivery O2 Flow Rate FiO2 12/17/16 07:11 36.6 104 18 151/87 (108) 97 Room Air 12/17/16 03:45 37.0 100 16 141/81 (101) 97 Room Air 12/17/16 00:10 37.6 105 16 127/74 (91) 97 Nasal Cannula 2.0 12/16/16 23:16 Nasal Cannula 12/16/16 23:04 37.7 12/16/16 23:00 37.5 106 16 141/76 (97) 98 Nasal Cannula 2.0 12/16/16 22:10 37.1 12/16/16 22:02 37.8 97 18 131/77 (95) 98 Nasal Cannula 2.0 12/16/16 21:30 37.0 107 16 142/85 (104) 98 Nasal Cannula 2.0 12/16/16 21:10 37.1 12/16/16 21:00 37.5 106 18 139/82 (101) 98 Nasal Cannula 2.0 12/16/16 21:00 Nasal Cannula 2.0 12/16/16 21:00 Nasal Cannula 2.0 12/16/16 20:43 107 20 12/16/16 20:43 107 20 97 12/16/16 20:41 139/81 12/16/16 20:38 107 20 12/16/16 20:38 107 20 97 12/16/16 20:36 132/85 12/16/16 20:36 37.3 12/16/16 20:33 107 20 12/16/16 20:33 106 20 98 12/16/16 20:32 107 20 12/16/16 20:32 107 20 97 12/16/16 20:31 153/84 12/16/16 20:27 106 25 99 12/16/16 20:27 106 25 12/16/16 20:26 155/87 12/16/16 20:22 103 26 100 12/16/16 20:22 103 26 12/16/16 20:21 149/83 12/16/16 20:18 101 29 12/16/16 20:18 101 29 100 12/16/16 20:16 136/76 12/16/16 20:13 103 26 99 12/16/16 20:13 104 26 12/16/16 20:12 102 28 12/16/16 20:12 102 28 99 12/16/16 20:11 133/73 12/16/16 20:07 101 20 12/16/16 20:07 101 20 99 12/16/16 20:06 138/77 12/16/16 20:02 100 20 12/16/16 20:02 99 20 99 12/16/16 20:01 133/74 12/16/16 19:57 98 20 12/16/16 19:57 36.8 100 20 125/72 99 Mask 10 12/16/16 19:57 99 20 125/72 98 12/16/16 18:36 Room Air 12/16/16 17:55 96 Room Air 12/16/16 17:40 37.1 112 20 130/75 (93) 96 Room Air 12/16/16 17:20 87 20 55/96 100 12/16/16 15:10 82 16 134/72 96 Room Air 12/16/16 14:13 96 Room Air 12/16/16 13:11 37.1 113 18 129/77 96 Room Air Laboratory Results 24 Hours: Test 12/16/16 13:50 12/17/16 05:23 White Blood Count 21.44 K/uL 17.03 K/uL Red Blood Count 4.61 M/uL 4.09 M/uL Hemoglobin 13.4 g/dL 11.9 g/dL Hematocrit 37.3 % 33.8 % Mean Corpuscular Volume 80.9 fL 82.6 fL Mean Corpuscular Hemoglobin 29.1 pg 29.1 pg Mean Corpuscular Hemoglobin Concent 35.9 g/dl 35.2 g/dl Platelet Count 326 K/uL 278 K/uL Mean Platelet Volume 8.8 fL 8.9 fL Neutrophils (%) (Auto) 85.4 % 83.6 % Lymphocytes (%) (Auto) 4.9 % 3.8 % Monocytes (%) (Auto) 9.2 % 12.0 % Eosinophils (%) (Auto) 0.0 % 0.1 % Basophils (%) (Auto) 0.0 % 0.1 % Neutrophils # (Auto) 18.27 K/uL 14.24 K/uL Lymphocytes # (Auto) 1.06 K/uL 0.65 K/uL Monocytes # (Auto) 1.98 K/uL 2.04 K/uL Eosinophils # (Auto) 0.01 K/uL 0.01 K/uL Basophils # (Auto) 0.01 K/uL 0.02 K/uL Prothromb Time International Ratio 1.1 Prothrombin Time 12.0 SECONDS Assessment & Plan Assessment: post op day #1 I and d of foerarm and olecranon buseectomy domingo pillow for elevation rom of digits will change dressing and DC packing on saturday Discharge Planning DVT Prophylaxis: SCDs Therapy: Occupational Therapy
[2016-12-17 07:57] LABS: ESTIMATED AVERAGE GLUCOSE 292 mg/dl; HA1C FLAG Normal (Normal)
[2016-12-17] MEDS: INSULIN ASPART 100 UNITS/ML 3 ML PEN SC SCH ×4 (08:32→20:33)
--- NOTE | 2016-12-17 17:08 | Progress Note ---
Subjective Date of Service: Dec 17, 2016. Objective Vital Signs Date Time Temp Pulse Resp B/P (MAP) Pulse Ox O2 Delivery O2 Flow Rate FiO2 12/17/16 16:40 38.3 12/17/16 15:48 38.6 108 18 152/80 (104) 95 Room Air 12/17/16 12:17 36.8 108 19 119/76 (90) 98 Room Air 12/17/16 07:35 Room Air 12/17/16 07:11 36.6 104 18 151/87 (108) 97 Room Air 12/17/16 03:45 37.0 100 16 141/81 (101) 97 Room Air 12/17/16 00:10 37.6 105 16 127/74 (91) 97 Nasal Cannula 2.0 12/16/16 23:16 Nasal Cannula 12/16/16 23:04 37.7 12/16/16 23:00 37.5 106 16 141/76 (97) 98 Nasal Cannula 2.0 12/16/16 22:10 37.1 12/16/16 22:02 37.8 97 18 131/77 (95) 98 Nasal Cannula 2.0 12/16/16 21:30 37.0 107 16 142/85 (104) 98 Nasal Cannula 2.0 12/16/16 21:10 37.1 12/16/16 21:00 37.5 106 18 139/82 (101) 98 Nasal Cannula 2.0 12/16/16 21:00 Nasal Cannula 2.0 12/16/16 21:00 Nasal Cannula 2.0 12/16/16 20:43 107 20 12/16/16 20:43 107 20 97 12/16/16 20:41 139/81 12/16/16 20:38 107 20 12/16/16 20:38 107 20 97 12/16/16 20:36 132/85 12/16/16 20:36 37.3 12/16/16 20:33 107 20 12/16/16 20:33 106 20 98 12/16/16 20:32 107 20 12/16/16 20:32 107 20 97 12/16/16 20:31 153/84 12/16/16 20:27 106 25 99 12/16/16 20:27 106 25 12/16/16 20:26 155/87 12/16/16 20:22 103 26 100 12/16/16 20:22 103 26 12/16/16 20:21 149/83 12/16/16 20:18 101 29 12/16/16 20:18 101 29 100 12/16/16 20:16 136/76 12/16/16 20:13 103 26 99 12/16/16 20:13 104 26 12/16/16 20:12 102 28 12/16/16 20:12 102 28 99 12/16/16 20:11 133/73 12/16/16 20:07 101 20 12/16/16 20:07 101 20 99 12/16/16 20:06 138/77 12/16/16 20:02 100 20 12/16/16 20:02 99 20 99 12/16/16 20:01 133/74 12/16/16 19:57 98 20 12/16/16 19:57 36.8 100 20 125/72 99 Mask 10 12/16/16 19:57 99 20 125/72 98 12/16/16 18:36 Room Air 12/16/16 17:55 96 Room Air 12/16/16 17:40 37.1 112 20 130/75 (93) 96 Room Air 12/16/16 17:20 87 20 55/96 100 Laboratory Results Last 24 Hours Test 12/16/16 20:01 12/16/16 20:43 12/16/16 21:30 12/17/16 05:23 Bedside Glucose 310 mg/dl 239 mg/dl 203 mg/dl White Blood Count 17.03 K/uL Red Blood Count 4.09 M/uL Hemoglobin 11.9 g/dL Hematocrit 33.8 % Mean Corpuscular Volume 82.6 fL Mean Corpuscular Hemoglobin 29.1 pg Mean Corpuscular Hemoglobin Concent 35.2 g/dl Platelet Count 278 K/uL Mean Platelet Volume 8.9 fL Neutrophils (%) (Auto) 83.6 % Lymphocytes (%) (Auto) 3.8 % Monocytes (%) (Auto) 12.0 % Eosinophils (%) (Auto) 0.1 % Basophils (%) (Auto) 0.1 % Neutrophils # (Auto) 14.24 K/uL Lymphocytes # (Auto) 0.65 K/uL Monocytes # (Auto) 2.04 K/uL Eosinophils # (Auto) 0.01 K/uL Basophils # (Auto) 0.02 K/uL RDW Standard Deviation 36.5 fL RDW Coefficient of Variation 12.0 % Immature Granulocyte % (Auto) 0.4 % Immature Granulocyte # (Auto) 0.07 K/uL Sodium Level 130 mmol/L Potassium Level 4.4 mmol/L Chloride Level 100 mmol/L Carbon Dioxide Level 17 mmol/L Anion Gap 13.0 mmol/L Blood Urea Nitrogen 17 mg/dl Creatinine 0.68 mg/dl Est Creatinine Clear Calc Drug Dose 128.1 ml/min Estimated GFR () 125.5 Estimated GFR (Non- 108.3 BUN/Creatinine Ratio 25.1 Random Glucose 227 mg/dl Calcium Level 8.0 mg/dl Magnesium Level 1.8 mg/dl Test 12/17/16 08:01 12/17/16 11:55 Bedside Glucose 216 mg/dl 302 mg/dl Assessment and Plan Left upper extremity cellulitis-- POD# 1 debridement Cont vanc and zosyn at this time Pain controlled Will consult ID Appreciate orthopedic recs Diabetes mellitus/hyperglycemia--blood sugar upon admission was 393. A1C11.8 Will need insulin on DC Diabetic teaching implemented Pseudohyponatremia--secondary to elevated blood sugar. Follow serial with hydration and treatment of blood sugar.
[2016-12-17] MEDS: ACETAMINOPHEN 325 MG TAB PO PRN (23:52)
[2016-12-18] VITALS (7 sets, daily range): BP systolic 151–156; BP diastolic 77–86; PULSE 98–111; TEMP 36.7–38.1; O2SAT 95; Ht 170.2 cm; Wt 83.1 kg
[2016-12-18] MEDS: PIPERACILL/TAZOBAC IV 3.375 GM in DEXTROSE 5% 100ML 100 ML IV SCH (05:56)
[2016-12-18] MEDS: VANCOMYCIN INJ 1,250 MG in SODIUM CHLORIDE 0.9% 250ML 250 ML IV SCH (06:21)
[2016-12-18] MEDS ORDERED: VANCOMYCIN TROUGH SCH (08:30)
[2016-12-18] MEDS: INSULIN ASPART 100 UNITS/ML 3 ML PEN SC SCH ×4 (09:04→20:52)
[2016-12-18 09:17] LABS: BASO % 0.1 %; BASO ABS # 0.02 K/uL (0-0.2); EOS % 0.3 %; HEMATOCRIT 39.2 % (42-52); IG% 0.9 %; LYMPH % 5.7 %; LYMPH ABS # 1.38 K/uL (1.2-3.4); MEAN CELL VOLUME 82.4 fL (80-100); MEAN CORPUSCULAR HEMOGLOBIN 28.4 pg (25-34); MEAN CORPUSCULAR HGB CONC 34.4 g/dl (32-36); MEAN PLATELET VOLUME 8.9 fL (7.4-10.4); MONO % 7.6 %; NEUT % 85.4 %; PLATELET COUNT 469 K/uL (130-400); RED BLOOD COUNT 4.76 M/uL (4.7-6.1)
[2016-12-18 09:28] LABS: BUN/CREATININE RATIO 17.7 (10-20); CALCIUM 8.7 mg/dl (8.5-10.1); CREATININE 0.81 mg/dl (0.60-1.40); POTASSIUM 3.8 mmol/L (3.5-5.1)
[2016-12-18 09:31] LABS: COMPLETE YES
--- NOTE | 2016-12-18 09:35 | Medical Consult ---
Consultation Date of Consultation: Dec 18, 2016. Attending Physician: Jd Gracia D.O. Reason for Consultation: Cellulitis/ abscess History of Present Illness 56 yo male with poorly controlled diabetes suffered scratch left elbow at work 2 weeks ago. Subsequently developed progressively worsening pain, swelling, and erythema of elbow and left arm wih fever. Was seen by PCP who started oral Bactrim but symptoms worsened and patient came to ED and was admitted. Has now undergone debrided and olecranon bursectomy. Cultures positive for MSSA. Has been on vancomycin and Zosyn with clinical improvement. Currently afebrile and feeling better. Pain left elbow minimal. Past Medical/Surgical History Type 2 diabetes mellitus, poorly controlled no other significant past medical or surgical history Family History Noncontributory Social History Smoking Status: Never Smoker Smokeless Tobacco Use: No Alcohol Use: socially Drug Use: none Marital Status: Occupation Status: employed Allergies Coded Allergies: No Known Allergies (Unverified , 12/16/16) Current Inpatient Medications Current Inpatient Medications Medications (Trade) Dose Ordered Sig/Rj Route Start Time Stop Time Status Last Admin Dose Admin Acetaminophen (Tylenol Tab) 650 mg Q4H PRN PO 12/16/16 16:45 01/15/17 16:44 12/17/16 23:52 650 MG Zolpidem Tartrate (Ambien Tab) 5 mg HSZ PRN PO 12/16/16 16:45 01/15/17 16:44 Ondansetron HCl (Zofran Inj) 4 mg Q6H PRN IV 12/16/16 16:45 01/15/17 16:44 Potassium Chloride/Sodium Chloride 1,000 ml @ 100 mls/hr Q10H IV 12/16/16 18:15 01/15/17 16:33 12/17/16 23:53 100 MLS/HR Tramadol HCl (Ultram Tab) 100 mg Q4H PRN PO 12/16/16 16:45 01/15/17 16:44 Tramadol HCl (Ultram Tab) 50 mg Q4H PRN PO 12/16/16 16:45 01/15/17 16:44 Ketorolac Tromethamine (Toradol Inj) 30 mg Q6H PRN IV 12/16/16 16:45 12/21/16 16:44 Insulin Aspart (novoLOG ASPART) SLIDING SCALE If C... ACHS SC 12/16/16 21:00 01/15/17 20:59 12/18/16 09:04 7 UNITS Glucose (Glucose 40% Gel) UD PRN PO 12/16/16 18:15 01/15/17 18:14 Glucose (Glucose Chew Tab) 1 tabs UD PRN PO 12/16/16 18:15 01/15/17 18:14 Dextrose (Dextrose 50% 50ML Syringe) 50 ml UD PRN IV 12/16/16 18:15 01/15/17 18:14 Glucagon (Glucagon Inj) 1 mg UD PRN SQ 12/16/16 18:15 01/15/17 18:14 Oxycodone/ Acetaminophen (Percocet 5-325mg Tab) 1 tab Q4H PRN PO 12/16/16 20:00 12/30/16 19:59 Morphine Sulfate (MoRPHine SULFATE INJ) 2 mg Q1H PRN IV 12/16/16 20:00 12/30/16 19:59 Oxycodone/ Acetaminophen (Percocet 5-325mg Tab) 2 tab Q4H PRN PO 12/16/16 20:00 12/30/16 19:59 Morphine Sulfate (MoRPHine SULFATE INJ) 4 mg Q1H PRN IV 12/16/16 20:00 12/30/16 19:59 Ondansetron HCl (Zofran Inj) 4 mg ONE PRN IV 12/16/16 20:00 01/15/17 19:59 Cefazolin Sodium 2000 mg/Dextrose 60 ml @ 100 mls/hr Q8 IV 12/18/16 10:00 01/29/17 09:59 Review of Systems All systems were reviewed and are negative except as per HPI Physical Exam Date Time Temp Pulse Resp B/P (MAP) Pulse Ox O2 Delivery O2 Flow Rate FiO2 12/18/16 07:43 95 Room Air 12/18/16 07:37 36.7 98 14 154/86 (108) 95 Room Air 12/18/16 07:15 Room Air 12/18/16 06:02 36.7 12/18/16 01:00 37.3 12/17/16 23:49 37.8 12/17/16 23:45 Room Air 12/17/16 23:45 38.3 12/17/16 23:00 37.5 103 16 145/76 (99) 95 Room Air 12/17/16 19:22 36.4 99 18 133/74 (93) 96 Room Air 12/17/16 17:27 37.0 12/17/16 17:00 37.1 12/17/16 16:40 38.3 12/17/16 15:48 38.6 108 18 152/80 (104) 95 Room Air 12/17/16 15:15 Room Air 12/17/16 12:17 36.8 108 19 119/76 (90) 98 Room Air General Appearance: WD/WN, no apparent distress Head: normocephalic, atraumatic Eyes: normal inspection, EOMI, sclerae normal ENT: normal ENT inspection, hearing grossly normal, pharynx normal Neck: supple, no adenopathy, thyroid normal, trachea midline Respiratory/Chest: chest non-tender, lungs clear, normal breath sounds, no respiratory distress Cardiovascular: regular rate, rhythm, no gallop, no murmur Abdomen/GI: normal bowel sounds, non tender, soft, no organomegaly Back: normal inspection, no CVA tenderness Extremities/Musculoskelatal: no calf tenderness, normal capillary refill Neurologic/Psych: alert, normal mood/affect, oriented x 3 Skin: normal color, no rash, + pertinent finding (Surgical dressing intact, left arm cellulitis resolving) Lymphatic: no adenopathy Laboratory Results RUN DATE: 12/18/16 [facility] LAB PAGE 1 RUN TIME: 715 Specimen Inquiry PATIENT: TARI BERRY LOC: [place] U # : [id number] AGE/SX: 56/M ROOM: [facility] REG : 12/16/[address]: Bryn Joseph M.D : 1960 BED: 1 DIS : STATUS: ADM IN TLOC: SPEC #: [id number] TREY: 12/16/16 STATUS: RES REQ #: [id number] RECD: 12/16/16 [facility] DR: Bryn Joseph M.D. SOURCE: JOINT FLSP ENTR: 12/16/[address] [facility] DR: Omar Flores MD SPDESC: SENG Greer, Assigned ORDERED: AER/EMERY CULTSMR COMMENTS: SOURCE IS LEFT OLECRANON BURSA Procedure Result Verified Site GRAM STAIN Final 12/17/16 RESULT MANY POLYS MODERATE GRAM POSITIVE COCCI OR AER/EMERY CULT Preliminary 12/18/16 Organism 1 STAPHYLOCOCCUS AUREUS QUANITY MODERATE SENS SENSITIVITY TO FOLLOW 1. STAPHYLOCOCCUS AUREUS Target Route Dose RX AB Cost M.I.C. IQ ------ ----- ------ -- ------ -------- - ------ TRIMET/SULFA S <=0.5/ 9.5 * OXACILLIN S 0.5 VANCOMYCIN S 1 ERYTHROMYCIN R >4 TETRACYCLINE S <=4 CLINDAMYCIN S <=0.5 DAPTOMYCIN S <=0.5 S = SENSITIVE I = INTERMEDIATE R = RESISTANT END OF REPORT Last 24 Hours Test 12/17/16 11:55 12/17/16 17:24 12/17/16 20:04 12/18/16 07:53 Bedside Glucose 302 mg/dl 260 mg/dl 272 mg/dl 198 mg/dl Test 12/18/16 08:27 White Blood Count 24.40 K/uL Red Blood Count 4.76 M/uL Hemoglobin 13.5 g/dL Hematocrit 39.2 % Mean Corpuscular Volume 82.4 fL Mean Corpuscular Hemoglobin 28.4 pg Mean Corpuscular Hemoglobin Concent 34.4 g/dl Platelet Count 469 K/uL Mean Platelet Volume 8.9 fL Neutrophils (%) (Auto) 85.4 % Lymphocytes (%) (Auto) 5.7 % Monocytes (%) (Auto) 7.6 % Eosinophils (%) (Auto) 0.3 % Basophils (%) (Auto) 0.1 % Neutrophils # (Auto) 20.87 K/uL Lymphocytes # (Auto) 1.38 K/uL Monocytes # (Auto) 1.85 K/uL Eosinophils # (Auto) 0.07 K/uL Basophils # (Auto) 0.02 K/uL RDW Standard Deviation 36.1 fL RDW Coefficient of Variation 11.9 % Immature Granulocyte % (Auto) 0.9 % Immature Granulocyte # (Auto) 0.21 K/uL LEFT ELBOW 3 VIEWS CLINICAL HISTORY: Cellulitis. FINDINGS: 3 views of the left elbow are obtained. No prior studies are available for comparison at the time of dictation. The skeletal structures are well mineralized. No fracture is seen. The joint spaces are maintained. No joint effusion is identified. Enthesophytes are noted along the lateral humeral epicondyle. Spurring is present lung the medial joint space. Soft tissue edema is present around the elbow, greatest dorsally. No subcutaneous gas is suggested. IMPRESSION: Soft tissues swelling with no acute bony abnormality seen in the left elbow. Electronically signed by: Jordan Frye M.D. 12/16/2016 2:50 PM Dictated Date/Time: 12/16/2016 2:49 PM The status of this report is Signed. Draft = Not yet reviewed or approved by Radiologist. Signed = Reviewed and approved by Radiologist. <AttendingPhy></AttendingPhy> <FamilyPhy>No Doctor, Assigned</FamilyPhy> < PrimaryPhy>No Doctor, Assigned</PrimaryPhy> <UnitNumber>[id number]</UnitNumber> <VisitNumber>[id number]</VisitNumber> <PatientName>TARI BERRY</PatientName > <DateOfBirth>1960</DateOfBirth> <Location>C. Assessment & Plan 56-year-old male with poorly controlled diabetes mellitus with cellulitis, abscess, and septic olecranon bursitis status post drainage was and bursectomy cultures growing methicillin sensitive S. aureus and I have changed patient to be cefazolin for now. Will likely need further IV therapy so will discuss outpatient therapy with all involved. Will follow.
[2016-12-18] MEDS: NSS + 20MEQ KCL 1000ML 1,000 ML IV SCH ×2 (09:54→20:06)
[2016-12-18] MEDS ORDERED: CEFAZOLIN IV 2,000 MG in DEXTROSE 5% 50ML 50 ML IV SCH (10:00)
[2016-12-18] MEDS ORDERED: INSULIN GLARGINE SOLOSTAR 100 UNITS/ML 3 ML PEN SC ONE (13:17)
--- NOTE | 2016-12-18 13:37 | Progress Note ---
Subjective Date of Service: Dec 18, 2016. Subjective Pt evaluation today including: conversation w/ patient, physical exam, chart review, lab review, review of studies, review of inpatient medication list Resting comfortably in bed Denies any worsening pain Fever last night and reports chills in the AM No other concerns noted Review of Systems Constitutional: + fever, + chills, No sweats, No weight loss, No weakness Eyes: No worsening of vision, No eye pain, No redness, No discharge Respiratory: No cough, No sputum, No wheezing, No shortness of breath, No dyspnea on exertion Cardiac: No chest pain, No orthopnea, No PND, No edema Abdomen: No pain, No nausea, No vomiting, No diarrhea, No constipation Musculoskeletal: No joint pain, No muscle pain, No swelling, No calf pain Male : No dysuria, No urinary frequency, No incontinence, No slowing stream Neurologic: No memory loss, No paralysis, No weakness, No numbness/tingling Psychiatric: No depression symptoms, No anhedonism, No anxiety, No insomnia Endo: No fatigue, No excessive thirst Skin: No rash, No itch Objective Vital Signs Date Time Temp Pulse Resp B/P (MAP) Pulse Ox O2 Delivery O2 Flow Rate FiO2 12/18/16 07:43 95 Room Air 12/18/16 07:37 36.7 98 14 154/86 (108) 95 Room Air 12/18/16 07:15 Room Air 12/18/16 06:02 36.7 12/18/16 01:00 37.3 12/17/16 23:49 37.8 12/17/16 23:45 Room Air 12/17/16 23:45 38.3 12/17/16 23:00 37.5 103 16 145/76 (99) 95 Room Air 12/17/16 19:22 36.4 99 18 133/74 (93) 96 Room Air 12/17/16 17:27 37.0 12/17/16 17:00 37.1 12/17/16 16:40 38.3 12/17/16 15:48 38.6 108 18 152/80 (104) 95 Room Air 12/17/16 15:15 Room Air Physical Exam General Appearance: WD/WN, no apparent distress Eyes: normal inspection, PERRL, EOMI, sclerae normal Neck: supple, no adenopathy, thyroid normal, no JVD Respiratory/Chest: chest non-tender, lungs clear, normal breath sounds, no respiratory distress Cardiovascular: regular rate, rhythm, no edema, no gallop, no JVD Abdomen: normal bowel sounds, non tender, soft, no organomegaly Extremities: normal range of motion, normal inspection, no pedal edema, + pertinent finding (left arm elbow in bandage ) Neurologic/Psychiatric: no motor/sensory deficits, alert, normal mood/affect, oriented x 3 Laboratory Results Last 24 Hours Test 12/17/16 17:24 12/17/16 20:04 12/18/16 07:53 12/18/16 08:27 Bedside Glucose 260 mg/dl 272 mg/dl 198 mg/dl White Blood Count 24.40 K/uL Red Blood Count 4.76 M/uL Hemoglobin 13.5 g/dL Hematocrit 39.2 % Mean Corpuscular Volume 82.4 fL Mean Corpuscular Hemoglobin 28.4 pg Mean Corpuscular Hemoglobin Concent 34.4 g/dl Platelet Count 469 K/uL Mean Platelet Volume 8.9 fL Neutrophils (%) (Auto) 85.4 % Lymphocytes (%) (Auto) 5.7 % Monocytes (%) (Auto) 7.6 % Eosinophils (%) (Auto) 0.3 % Basophils (%) (Auto) 0.1 % Neutrophils # (Auto) 20.87 K/uL Lymphocytes # (Auto) 1.38 K/uL Monocytes # (Auto) 1.85 K/uL Eosinophils # (Auto) 0.07 K/uL Basophils # (Auto) 0.02 K/uL RDW Standard Deviation 36.1 fL RDW Coefficient of Variation 11.9 % Immature Granulocyte % (Auto) 0.9 % Immature Granulocyte # (Auto) 0.21 K/uL Sodium Level 132 mmol/L Potassium Level 3.8 mmol/L Chloride Level 98 mmol/L Carbon Dioxide Level 18 mmol/L Anion Gap 16.0 mmol/L Blood Urea Nitrogen 14 mg/dl Creatinine 0.81 mg/dl Est Creatinine Clear Calc Drug Dose 107.5 ml/min Estimated GFR () 116.8 Estimated GFR (Non- 100.8 BUN/Creatinine Ratio 17.7 Random Glucose 237 mg/dl Calcium Level 8.7 mg/dl Magnesium Level 2.0 mg/dl Vancomycin Level Trough 37.1 mcg/ml Test 12/18/16 12:07 Bedside Glucose 307 mg/dl Assessment and Plan Left septic olecranon bursitis status post drainage was and bursectomy POD# 2 Wound cx pos for MSSA Will switch vanc and zosyn to IV cefazolin 2 grams IV q 8 hrs per ID recs Repeat blood cx due to fevers and worsening leukocytosis 17-->24 Pain controlled, only tylenol PRN needed Appreciate orthopedic recs Diabetes mellitus/hyperglycemia Still uncontrolled A1C11.8 Diabetic teaching implemented Started on lantus 20 units SC daily in addition to SSI Will likely need NPH due to no insurance Pseudohyponatremia--secondary to elevated blood sugar. Follow serial with hydration and treatment of blood sugar.
[2016-12-18] MEDS: CEFAZOLIN IV 2,000 MG in DEXTROSE 5% 50ML 50 ML IV SCH (17:48)
[2016-12-18] MEDS ORDERED: NURSING VERBAL MED ORDER ONE (18:15)
--- NOTE | 2016-12-18 19:06 | Orthopedic Progress Note ---
Orthopedic Progress Note Date of Service Dec 18, 2016. Subjective Post OP Day: 2 Reports: feeling well Objective N/V intact, incision C/D/I (left elbow shows no evidence of recurrent infection. He has no evidence of fluctuance. Supple motion is seen.) Date Time Temp Pulse Resp B/P (MAP) Pulse Ox O2 Delivery O2 Flow Rate FiO2 12/18/16 15:27 Room Air 12/18/16 15:26 37.3 111 16 151/77 (101) 95 Room Air 12/18/16 07:43 95 Room Air 12/18/16 07:37 36.7 98 14 154/86 (108) 95 Room Air 12/18/16 07:15 Room Air 12/18/16 06:02 36.7 12/18/16 01:00 37.3 12/17/16 23:49 37.8 12/17/16 23:45 Room Air 12/17/16 23:45 38.3 12/17/16 23:00 37.5 103 16 145/76 (99) 95 Room Air 12/17/16 19:22 36.4 99 18 133/74 (93) 96 Room Air Laboratory Results 24 Hours: Test 12/18/16 08:27 White Blood Count 24.40 K/uL Red Blood Count 4.76 M/uL Hemoglobin 13.5 g/dL Hematocrit 39.2 % Mean Corpuscular Volume 82.4 fL Mean Corpuscular Hemoglobin 28.4 pg Mean Corpuscular Hemoglobin Concent 34.4 g/dl Platelet Count 469 K/uL Mean Platelet Volume 8.9 fL Neutrophils (%) (Auto) 85.4 % Lymphocytes (%) (Auto) 5.7 % Monocytes (%) (Auto) 7.6 % Eosinophils (%) (Auto) 0.3 % Basophils (%) (Auto) 0.1 % Neutrophils # (Auto) 20.87 K/uL Lymphocytes # (Auto) 1.38 K/uL Monocytes # (Auto) 1.85 K/uL Eosinophils # (Auto) 0.07 K/uL Basophils # (Auto) 0.02 K/uL Assessment & Plan Assessment: post op day # 2 and d of foerarm and olecranon bursectomy domingo pillow for elevation rom of digits Packing is removed today , his arm looks good. I would not anticipate any further surgical treatment. He should follow up with me 10 days from discharge. May do range of motion as tolerated. I instructed him in elevation of the extremity and range of motion of the digits and the elbow. We will sign off please call with any further questions Discharge Planning Discharge Planning: home DVT Prophylaxis: SCDs Therapy: Occupational Therapy
--- NOTE | 2016-12-18 19:06 | Consultant Recommendations ---
Aeronautical Engineering Officer Recommendations Date of Service Dec 18, 2016. Aeronautical Engineering Officer Recommendations He should follow up with me 10 days from discharge. May do range of motion as tolerated. I instructed him in elevation of the extremity and range of motion of the digits and the elbow. Continue dry sterile dressing changes on the elbow once a day.
[2016-12-18] MEDS: ACETAMINOPHEN 325 MG TAB PO PRN (23:40)
[2016-12-19] MEDS: CEFAZOLIN IV 2,000 MG in DEXTROSE 5% 50ML 50 ML IV SCH ×2 (02:05→09:35)
[2016-12-19] MEDS: NSS + 20MEQ KCL 1000ML 1,000 ML IV SCH (05:47)
[2016-12-19 05:49] LABS: HEMATOCRIT 33.9 % (42-52); MEAN CELL VOLUME 81.1 fL (80-100); MEAN CORPUSCULAR HEMOGLOBIN 28.2 pg (25-34); MEAN CORPUSCULAR HGB CONC 34.8 g/dl (32-36); MEAN PLATELET VOLUME 8.7 fL (7.4-10.4); PLATELET COUNT 345 K/uL (130-400); RED BLOOD COUNT 4.18 M/uL (4.7-6.1)
[2016-12-19 06:16] LABS: BASO % 0.1 %; BASO ABS # 0.01 K/uL (0-0.2); COMPLETE YES; DOHLE BODIES 1+; ECHINOCYTES 1+; EOS % 0.5 %; IG% 1.1 %; LYMPH % 5.4 %; LYMPH ABS # 0.92 K/uL (1.2-3.4); MONO % 10.4 %; NEUT % 82.5 %; TOXIC GRANULATION OCCASIONAL
[2016-12-19 06:29] LABS: BUN/CREATININE RATIO 22.6 (10-20); CALCIUM 7.6 mg/dl (8.5-10.1); CREATININE 0.61 mg/dl (0.60-1.40); MAGNESIUM 1.8 mg/dl (1.8-2.4); POTASSIUM 3.9 mmol/L (3.5-5.1)
[2016-12-19 07:34] VITALS: BP 160/78; PULSE 102; TEMP 36.9; O2SAT 96
[2016-12-19 07:36] VITALS: O2SAT 96
[2016-12-19] MEDS: INSULIN ASPART 100 UNITS/ML 3 ML PEN SC SCH ×2 (08:36→12:34)
[2016-12-19] MEDS ORDERED: INSULIN GLARGINE SOLOSTAR 100 UNITS/ML 3 ML PEN SC SCH ×2 (09:00)
[2016-12-19] MEDS ORDERED: METFORMIN HCL 500 MG TAB PO SCH (09:00)
--- NOTE | 2016-12-19 10:50 | Discharge Summary ---
Discharge Summary Date of Service Dec 19, 2016. Discharge Summary Admission Date: Dec 16, 2016 at 16:34 Discharge Date: Dec 19, 2016 Discharge Disposition: Home with services Principal Diagnosis: Left septic olecranon bursitis Immunizations: Have You Had Influenza Vaccine: Unknown History of Tetanus Vaccine?: Yes (given today in the ED.) History of Pneumococcal: Unknown History of Hepatitis B Vaccine: Unknown Consultations: Orthopedic surgery Infectious Disease Medication Reconciliation New Medications: Ceftriaxone Sodium (Ceftriaxone Sodium) 2 Gm Inj 2 GM IV DAILY for 7 Days, VIAL Insulin Glargine (Lantus Solostar) 100 Unit/Ml Inj 30 UNITS SC DAILY, #1 BOX Metformin HCl (Metformin HCl) 500 Mg Tab 500 MG PO BIDM, #60 TAB Discharge Exam Review of Systems: Constitutional: No fever, No chills, No sweats, No weakness ENT: No hearing loss, No unusual epistaxis, No nasal symptoms, No sore throat, No tinnitus Respiratory: No cough, No sputum, No wheezing, No shortness of breath, No dyspnea on exertion Cardiovascular: No chest pain, No orthopnea, No PND, No edema Abdomen: No pain, No nausea, No vomiting, No diarrhea Musculoskeletal: No joint pain, No muscle pain, No swelling, No calf pain Genitourinary - Male: No hematuria, No dysuria, No urinary frequency, No urinary urgency Neurologic: No memory loss, No paralysis, No weakness, No numbness/tingling Psychiatric: No depression symptoms, No anhedonism, No anxiety, No insomnia Endocrine: No fatigue, No excessive thirst, No excessive urination Physical Exam: General Appearance: WD/WN, no apparent distress ENT: normal ENT inspection, hearing grossly normal, TMs normal, pharynx normal Neck: supple, no adenopathy, thyroid normal, no JVD Respiratory/Chest: chest non-tender, lungs clear, normal breath sounds, no respiratory distress Cardiovascular: regular rate, rhythm, no edema, no gallop, no JVD, no murmur Abdomen / GI: normal bowel sounds, non tender, soft, no organomegaly Extremities: normal inspection, no calf tenderness, normal capillary refill , no pedal edema Neurologic/Psychiatric: no motor/sensory deficits, alert, normal mood/affect , oriented x 3 Skin: normal color, warm/dry, no rash Hospital Course Left septic olecranon bursitis status post drainage was and bursectomy POD# 3 Wound cx pos for MSSA Initially on vanc and zosyn then switched to IV cefazolin 2 grams IV q 8 hrs per ID recs Dur to cost and ease of dosing, switched to rocephin 2 gm IV daily for 7 days on discharge Leukocytosis improving from 24 -->16 on discharge Pain controlled, only tylenol PRN needed F/U with orthopedic and ID in 1-2 weeks Diabetes mellitus/hyperglycemia Still uncontrolled A1C 11.8 Diabetic teaching implemented Started on lantus 20 units SC daily and increase to 30 units SC daily in addition to adding metformin 850 mg PO BID Will likely need NPH due to no insurance, will leave to PCP to make any further changes Pseudohyponatremia--secondary to elevated blood sugar. Follow serial with hydration and treatment of blood sugar. Total Time Spent: Greater than 30 minutes This includes examination of the patient, discharge planning, medication reconciliation, and communication with other providers. Discharge Instructions Please refer to the electronic Patient Visit Report (Discharge Instructions) for additional information.
[2016-12-19] MEDS ORDERED: GLC500 PO ×2 (11:48→13:57)
[2016-12-19] MEDS ORDERED: INSDGIPEN SC ×2 (11:48→13:57)
[2016-12-19] MEDS ORDERED: CEFT2INJ40 IV ×2 (11:53→13:57)
--- NOTE | 2016-12-19 11:59 | Discharge Instructions ---
Discharge Instructions Date of Service Dec 19, 2016. Admission Reason for Admission: Failure Of Outpatient Treatment, Lt Arm Cellulitis Discharge Discharge Diagnosis / Problem: Left olecranon bursitis, new onset IDDM Discharge Goals Goal(s): Decrease discomfort, Improve function, Increase independence, Improve disease control, Diagnostic testing, Therapeutic intervention, Prevent Disease Progression Activity Recommendations Activity Limitations: resume your previous activity Exercise/Sports Limitations: none Shower/Bathe: no limitations . Instructions / Follow-Up Instructions / Follow-Up Patient to be discharged home with home health Will require antibiotic rocephin 2 gm IV through PICC line daily Due to new onset diabetes, will also be sent home with lantus pen to administer 30 units once a day in addition to metformin 500 MG tablet twice a day Please check your glucose three times a day, before each meal and also at night if possible Please follow up with primary care provider in less than a week Please follow up with Dr Ramirez in 1-2 weeks Please follow up with Dr Mcintosh in 1-2 weeks Current Hospital Diet Patient's current hospital diet: Diabetes Type 2 Diet Discharge Diet Recommended Diet: Diabetes Type 2 Diet Procedures Procedures Performed: Incision and Drainage Left Forearm, Olecranon Bursectomy Pending Studies Studies pending at discharge: no Laboratory Results Hemoglobin A1c Test 12/16/16 13:50 Range/Units Estimated Average Glucose 292 mg/dl Hemoglobin A1c 11.8 H 4.5-5.6 % Medical Emergencies . Who to Call and When: Medical Emergencies: If at any time you feel your situation is an emergency, please call 911 immediately. . Non-Emergent Contact Non-Emergency issues call your: Primary Care Provider Call Non-Emergent contact if: you have a fever, your pain is worsening . . "Provider Documentation" section prepared by Jd Gracia. . Employment Services Director Recommendations Employment Services Director Recommendations: He should follow up with me 10 days from discharge. May do range of motion as tolerated. I instructed him in elevation of the extremity and range of motion of the digits and the elbow. Continue dry sterile dressing changes on the elbow once a day. VTE Core Measure Inpt VTE Proph given/why not?: SCD's
[2016-12-19] MEDS ORDERED: CEFTRIAXONE SOD INJ 2,000 MG in DEXTROSE 5% 50ML 50 ML IV SCH (12:00)
[2016-12-19 12:57] VITALS: BP 160/78; PULSE 102; TEMP 36.9; O2SAT 96
--- NOTE | 2016-12-30 21:28 | Medical Consult ---
Consultation Note Date of Service Dec 30, 2016. Consultation Note Date Dec 16, 2016. 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 He does not have a known history of diabetes. He notes chills. No complaints of fevers Past Medical/Surgical History Medical Problems: (1) Failure of outpatient treatment (2) Left arm cellulitis Additional History Hepatic Disease: No Endocrine Disorder: No Kidney Disease: No Hypertension: No Heart Disease: No Bleeding Tendencies: No Infectious Diseases: No Allergies Coded Allergies: No Known Allergies (Unverified , 12/16/16) Home Medications No Active Prescriptions or Reported Meds Physical Examination Skin: warm/dry Eyes: normal inspection ENT: normal ENT inspection Respiratory/Chest: no respiratory distress Addiitonal Comments: Left forearm exam shows supple range of motion of the elbow in a short arc without significant discomfort. He has fluctuance and swelling over the posterior aspect of the elbow both in the olecranon bursa as well as in the mid aspect of the forearm extending to the anterior aspect of the forearm. He superficial abrasions are seen over the forearm, has surrounding erythema. He can flex and extend the wrist without discomfort. His negative knavel signs. He has axillary lymphadenopathy Diagnosis Left forearm abscess undiagnosed diabetes Plan of Treatment The patient exhibits evidence of abscess with gross purulent drainage from the posterior elbow consistent with possible septic workup bursitis as well as forearm abscess. He has a white count of 21 and likely has undiagnosed diabetes with sugars in the 400 range. My recommendation for medical admission for control of his sugars and plan for surgical irrigation and debridement shortly. I discussed risks benefits and reasonable outcomes, I discussed possibility of further surgery needed tendon nerve injury etc. is agreeable to proceed with surgical intervention <Electronically signed by Omar Flores MD> Signed: 12/16/16 [id number] Signed: The status of this report is Signed * If report status is Draft, the document has not been finalized by the responsible provider. [facility]NE: [facility] History and Physical Template <AttendingPhy>Bryn Joesph M.D.</AttendingPhy><EDPhy>José Miguel Argueta M.D.< /EDPhy> <FamilyPhy>No Doctor, Assigned</FamilyPhy> <PrimaryPhy>No Doctor, Assigned</PrimaryPhy><UnitNumber>[id number]</UnitNumber><VisitNumber> [id number]</VisitNumber><PatientName>TARI BERRY</PatientName><DateOfBirth> 1960</DateOfBirth><Age>56</Age><Location>[facility]</Location><ServiceDate>12/16</ServiceDate><CC>Omar Flores MD No Doctor, Assigned</CC><MNE>[facility]</MNE>
[2017-01-30] MEDS ORDERED: CEPH500C2 PO (09:40)
== END 2016-12-19 14:34 | disposition home health service (06) | DRG 501 ==
LOC: C.EDB 13:08 → C.3E 16:34 → ENRESERV 16:54
PROVIDERS: ADMIT Hospitalist; ATTEND Hospitalist
PROC: 0MB40ZZ Excision of Left Elbow Bursa and Ligament, Open Approach (ICD-10-PCS; principal; 2016-12-16 18:30)
PROC: 0XBF0ZZ Excision of Left Lower Arm, Open Approach (ICD-10-PCS; principal; 2016-12-16 18:30)
DX: M71.122 Other infective bursitis, left elbow (principal); E87.1 Hypo-osmolality and hyponatremia; L02.414 Cutaneous abscess of left upper limb; B95.61 Methicillin susceptible Staphylococcus aureus infection as the cause of diseases classified elsewhere; E13.65 Other specified diabetes mellitus with hyperglycemia

== ENCOUNTER → 2016-12-24 | Outpatient (CLI) | payer OTHER ==
[~2016-12-24] MED LIST: CEFT2INJ40 IV; CEPH500C2 PO; GLC500 PO; INSDGIPEN SC; RFM300 PO
[2016-12-24 11:19] LABS: ALT/SGPT 30 U/L (12-78); BLOOD UREA NITROGEN 8 mg/dl (7-18); BUN/CREATININE RATIO 12.9 (10-20); CALCIUM 7.9 mg/dl (8.5-10.1); CARBON DIOXIDE 29 mmol/L (21-32); CHLORIDE 97 mmol/L (98-107); CREATININE 0.62 mg/dl (0.60-1.40); GLUCOSE 241 mg/dl (70-99); SODIUM 131 mmol/L (136-145)
[2016-12-24 11:24] LABS: ALB/GLOB RATIO 0.4 (0.9-2); ALKALINE PHOSPHATASE 88 U/L (45-117); AST/SGOT 20 U/L (15-37)
== END | disposition home or self-care (01) ==
LOC: C.LABSPEC 10:38
PROVIDERS: ATTEND Internal Medicine Infectious Disease
DX: Z79.2 Long term (current) use of antibiotics (principal)

== ENCOUNTER → 2016-12-26 | Outpatient (CLI) | payer OTHER | END | disposition home or self-care (01) | LOC: C.LABSPEC 17:45 | PROVIDERS: ATTEND Orthopaedic Surgery | DX: M25.422 Effusion, left elbow (principal) ==

== ENCOUNTER → 2016-12-31 | Outpatient (CLI) | payer OTHER ==
[2016-12-31 10:38] LABS: HEMATOCRIT 32.2 % (42-52); MEAN CELL VOLUME 84.1 fL (80-100); MEAN CORPUSCULAR HEMOGLOBIN 27.4 pg (25-34); MEAN CORPUSCULAR HGB CONC 32.6 g/dl (32-36); MEAN PLATELET VOLUME 7.9 fL (7.4-10.4); PLATELET COUNT 400 K/uL (130-400); RED BLOOD COUNT 3.83 M/uL (4.7-6.1); WHITE BLOOD COUNT 8.53 K/uL (4.8-10.8)
[2016-12-31 10:45] LABS: ALT/SGPT 20 U/L (12-78); BLOOD UREA NITROGEN 11 mg/dl (7-18); BUN/CREATININE RATIO 13.9 (10-20); C-REACTIVE PROTEIN 3.98 mg/dl (0-0.29); CALCIUM 8.4 mg/dl (8.5-10.1); CARBON DIOXIDE 28 mmol/L (21-32); CHLORIDE 99 mmol/L (98-107); CREATININE 0.77 mg/dl (0.60-1.40); GLUCOSE 250 mg/dl (70-99); POTASSIUM 4.3 mmol/L (3.5-5.1); SODIUM 133 mmol/L (136-145)
[2016-12-31 10:48] LABS: ALKALINE PHOSPHATASE 74 U/L (45-117); AST/SGOT 15 U/L (15-37)
== END | disposition home or self-care (01) ==
LOC: C.LABSPEC 10:21
PROVIDERS: ATTEND Internal Medicine Infectious Disease
DX: Z51.81 Encounter for therapeutic drug level monitoring (principal); Z79.899 Other long term (current) drug therapy

== ENCOUNTER 2017-01-01 15:56 | Inpatient (IN) | payer OTHER ==
[~2017-01-01] VITALS: Ht 170.2 cm; Wt 91.0 kg
[~2017-01-01 15:56] MED LIST changes: -CEPH500C2 PO; -RFM300 PO
[2017-01-01 16:45] VITALS: O2SAT 99
[2017-01-01 17:00] VITALS: BP 120/74; PULSE 100; TEMP 37.1; O2SAT 99
[2017-01-01 17:02] VITALS: BP 120/74; PULSE 100; TEMP 37.1; BMI 31.4
--- NOTE | 2017-01-01 17:08 | History and Physical ---
History & Physical Date Jan 01, 2017. Chief Complaint 56 y/o white male presenting with left elbow/forearm infection. History of Present Illness The patient is a 56 year old male with complaints of left elbow infection. He is s/p left elbow bursectomy with continued drainage. He currently has picc line with Rocephin. Clinically he appears to be improving however he continues to have excessive drainage left elbow. Past Medical/Surgical History Medical Problems: (1) Failure of outpatient treatment (2) Left arm cellulitis Surgical History s/p left elbow I &D bursectomy/infection Allergies Coded Allergies: No Known Allergies (Unverified , 12/16/16) Home Medications Scheduled Ceftriaxone Sodium (Ceftriaxone Sodium), 2 GM IV DAILY Insulin Glargine (Lantus Solostar), 30 UNITS SC DAILY Metformin HCl (Metformin HCl), 500 MG PO BIDM Physical Examination Skin: warm/dry Respiratory/Chest: lungs clear, normal breath sounds Cardiovascular: regular rate, rhythm Extremities: + pertinent finding (left upper extremity swelling. Purulent drainage left elbow. incision healing well. swelling digits) Addiitonal Comments: He denies fevers/chills. Denies SOB, difficulty breathing, chest pain. Plan of Treatment Patient admitted today for IV Rocephin and Infectious disease consult as well. Dr. Flores plan for I & D tomorrow left elbow/forearm.
[2017-01-01] MEDS ORDERED: OXYCODONE/ACETAMINOPHEN 5-325 TAB PO PRN (17:30)
[2017-01-01] MEDS ORDERED: NURSING VERBAL MED ORDER ONE (18:00)
[2017-01-01] MEDS ORDERED: GLUCOSE 10 TABS/TUBE PO PRN (18:15)
[2017-01-01] MEDS ORDERED: GLUCAGON FOR INJ 1 MG VIAL SQ PRN (18:15)
[2017-01-01] MEDS ORDERED: DEXTROSE 50% 50 ML SYR IV PRN (18:15)
[2017-01-01] MEDS ORDERED: GLUCOSE 40% GEL 15 GM TUBE PO PRN (18:15)
[2017-01-01 22:43] LABS: BASO % 0.4 %; BASO ABS # 0.04 K/uL (0-0.2); EOS % 1.3 %; IG% 1.2 %; LYMPH % 18.1 %; LYMPH ABS # 1.72 K/uL (1.2-3.4); MEAN CELL VOLUME 84.9 fL (80-100); MEAN CORPUSCULAR HEMOGLOBIN 27.6 pg (25-34); MEAN PLATELET VOLUME 7.8 fL (7.4-10.4); MONO % 9.4 %; NEUT % 69.6 %; PLATELET COUNT 364 K/uL (130-400); RED BLOOD COUNT 3.77 M/uL (4.7-6.1); WHITE BLOOD COUNT 9.51 K/uL (4.8-10.8)
[2017-01-01 22:55] LABS: COMPLETE YES; MEAN CORPUSCULAR HGB CONC 32.5 g/dl (32-36)
[2017-01-01 23:06] LABS: BUN/CREATININE RATIO 17.8 (10-20); CALCIUM 8.7 mg/dl (8.5-10.1); CREATININE 0.87 mg/dl (0.60-1.40); POTASSIUM 4.3 mmol/L (3.5-5.1)
[2017-01-01] MEDS ORDERED: SODIUM CHLORIDE 0.9% 1000ML 1,000 ML IV STA (23:09)
[2017-01-01 23:25] VITALS: BP 184/97; PULSE 86; TEMP 36.9; O2SAT 96
[2017-01-01] MEDS: SODIUM CHLORIDE 0.9% 1000ML 1,000 ML IV SCH (23:49)
--- NOTE | 2017-01-01 23:53 | Medical Consult ---
Consultation Date of Consultation: Jan 01, 2017. Attending Physician: Omar Flores MD Reason for Consultation: Glucose Management History of Present Illness Patient reports feeling well, awaiting I&D in the morning. Recently diagnosed type 2 diabetes mellitus. He feels hypoglycemic around 95. HbA1C 11.8 in 12/16/16. Denies any polyuria or polydipsia Past Medical/Surgical History Type 2 diabetes mellitus Social History Smoking Status: Never Smoker Drug Use: none Marital Status: Occupation Status: employed Allergies Coded Allergies: No Known Allergies (Unverified , 12/16/16) Current Inpatient Medications Current Inpatient Medications Medications (Trade) Dose Ordered Sig/Rj Route Start Time Stop Time Status Last Admin Dose Admin Oxycodone/ Acetaminophen (Percocet 5-325mg Tab) `1-2 TABS FOR PAIN `1 TAB... Q4H PRN PO 01/01/17 17:30 01/15/17 17:29 Ceftriaxone Sodium 2000 mg/ Dextrose 70 ml @ 140 mls/hr DAILY@1000 IV 01/02/17 10:00 01/12/17 09:59 Insulin Glargine (Lantus Solostar Pen) 30 units DAILY SC 01/02/17 09:00 02/01/17 08:59 Glucose (Glucose 40% Gel) 15-30 GRAMS 15 GRAMS... UD PRN PO 01/01/17 18:15 01/31/17 18:14 Glucose (Glucose Chew Tab) 4-8 Tablets 4 Tabl... UD PRN PO 01/01/17 18:15 01/31/17 18:14 Dextrose (Dextrose 50% 50ML Syringe) 25-50ML OF 50% DW IV FOR... UD PRN IV 01/01/17 18:15 01/31/17 18:14 Glucagon (Glucagon Inj) 1 mg UD PRN SQ 01/01/17 18:15 01/31/17 18:14 Heparin Sodium (Porcine) (Heparin 10 Unit/ ml 5 ml Flush) 5 ml PRN PRN FLUSH 01/01/17 23:15 01/31/17 23:14 Insulin Aspart (novoLOG ASPART) SLIDING SCALE Q6 SC 01/02/17 00:00 02/01/17 00:00 Sodium Chloride 1,000 ml @ 999 mls/hr Q1H1M STAT IV 01/01/17 23:09 01/02/17 00:09 Sodium Chloride 1,000 ml @ 125 mls/hr Q8H IV 01/02/17 00:15 02/01/17 00:14 01/01/17 23:49 125 MLS/HR Review of Systems ROS: all systems reviewed and are otherwise negative Physical Exam Date Time Temp Pulse Resp B/P (MAP) Pulse Ox O2 Delivery O2 Flow Rate FiO2 01/01/17 23:25 36.9 86 18 184/97 (126) 96 Room Air 01/01/17 17:02 37.1 100 18 120/74 Room Air 01/01/17 17:00 37.1 100 18 120/74 (89) 99 Room Air 01/01/17 16:45 99 Room Air General Appearance: WD/WN, no apparent distress Neck: supple, no JVD Respiratory/Chest: chest non-tender, lungs clear, normal breath sounds, no respiratory distress, no accessory muscle use Cardiovascular: no edema, no murmur, normal peripheral pulses, + tachycardia Abdomen/GI: normal bowel sounds, non tender, soft Extremities/Musculoskelatal: no calf tenderness, normal capillary refill, no pedal edema Neurologic/Psych: scrap sawyer II-XII nml as tested, no motor/sensory deficits, alert Skin: no rash Laboratory Results Last 24 Hours Test 01/01/17 17:45 01/01/17 20:35 01/01/17 22:34 Bedside Glucose 182 mg/dl 159 mg/dl White Blood Count 9.51 K/uL Red Blood Count 3.77 M/uL Hemoglobin 10.4 g/dL Hematocrit 32.0 % Mean Corpuscular Volume 84.9 fL Mean Corpuscular Hemoglobin 27.6 pg Mean Corpuscular Hemoglobin Concent 32.5 g/dl Platelet Count 364 K/uL Mean Platelet Volume 7.8 fL Neutrophils (%) (Auto) 69.6 % Lymphocytes (%) (Auto) 18.1 % Monocytes (%) (Auto) 9.4 % Eosinophils (%) (Auto) 1.3 % Basophils (%) (Auto) 0.4 % Neutrophils # (Auto) 6.63 K/uL Lymphocytes # (Auto) 1.72 K/uL Monocytes # (Auto) 0.89 K/uL Eosinophils # (Auto) 0.12 K/uL Basophils # (Auto) 0.04 K/uL RDW Standard Deviation 38.1 fL RDW Coefficient of Variation 12.4 % Immature Granulocyte % (Auto) 1.2 % Immature Granulocyte # (Auto) 0.11 K/uL Sodium Level 134 mmol/L Potassium Level 4.3 mmol/L Chloride Level 98 mmol/L Carbon Dioxide Level 30 mmol/L Anion Gap 6.0 mmol/L Blood Urea Nitrogen 16 mg/dl Creatinine 0.87 mg/dl Est Creatinine Clear Calc Drug Dose 104.4 ml/min Estimated GFR () 113.4 Estimated GFR (Non- 97.8 BUN/Creatinine Ratio 17.8 Random Glucose 175 mg/dl Calcium Level 8.7 mg/dl Assessment & Plan Tachycardia - suspect slightly dehydrated. Will give bolus and then maintenance NSS @ 125MLS /HR to keep him hydrated before surgery as nursing report he is due later in the day T2DM - of note he feels hypoglycemic around 95 due to newly diagnosed. HbA1C 11.8 in 12/16/16 - continue home dose of lantus 30 units daily - ACHS/Q6H BSG - novolog sliding scale with aim 110-140 and correction factor 40. - hold metformin before surgery, can be started the evening after at the discretion of orthopedics VTE Prophylaxis - as per primary orthopedic team Code - Full Disposition - awaiting repeat surgery for infected olecranon bursitis.
[2017-01-02] VITALS (9 sets, daily range): BP systolic 120–186; BP diastolic 66–106; PULSE 79–101; TEMP 36.3–36.7; O2SAT 95–98
[2017-01-02] MEDS ORDERED: NURSING VERBAL MED ORDER ONE ×3 (00:15→20:45)
[2017-01-02] MEDS: INSULIN ASPART 100 UNITS/ML 3 ML PEN SC SCH ×5 (00:35→21:00)
[2017-01-02] MEDS ORDERED: INSULIN ASPART 100 UNITS/ML 3 ML PEN SC SCH (08:00)
[2017-01-02] MEDS ORDERED: METFORMIN HCL 500 MG TAB PO SCH (08:30)
[2017-01-02] MEDS: SODIUM CHLORIDE 0.9% 1000ML 1,000 ML IV SCH ×3 (08:33→23:43)
[2017-01-02] MEDS ORDERED: INSULIN GLARGINE SOLOSTAR 100 UNITS/ML 3 ML PEN SC SCH (09:00)
[2017-01-02] MEDS: INSULIN GLARGINE SOLOSTAR 100 UNITS/ML 3 ML PEN SC SCH (09:31)
[2017-01-02] MEDS: CEFTRIAXONE SOD INJ 2000 MG in DEXTROSE 5% 50ML IV SCH (10:03)
[2017-01-02 10:06] LABS: HEMATOCRIT 31.1 % (42-52); MEAN CELL VOLUME 84.7 fL (80-100); MEAN CORPUSCULAR HEMOGLOBIN 28.9 pg (25-34); MEAN CORPUSCULAR HGB CONC 34.1 g/dl (32-36); MEAN PLATELET VOLUME 7.7 fL (7.4-10.4); PLATELET COUNT 341 K/uL (130-400); RED BLOOD COUNT 3.67 M/uL (4.7-6.1); WHITE BLOOD COUNT 8.41 K/uL (4.8-10.8)
[2017-01-02 10:30] LABS: BUN/CREATININE RATIO 18.2 (10-20); CALCIUM 8.3 mg/dl (8.5-10.1); CREATININE 0.62 mg/dl (0.60-1.40); POTASSIUM 4.5 mmol/L (3.5-5.1)
--- NOTE | 2017-01-02 12:43 | Medical Consult ---
Consultation Date of Consultation: Jan 02, 2017. Attending Physician: Omar Flores MD Reason for Consultation: L Elbow infection History of Present Illness Patient is a 56-year-old male with recent history of a left septic olecranon bursitis with MSSA. The patient initially had an I and D with left olecranon bursectomy completed by Dr. Flores. At that time, his surgical cultures grew pansensitive MSSA. He was initially placed on Ancef, but was discharged on IV ceftriaxone 2 grams daily for 7 days. The patient states that when he followed up with Dr. Flores in the office, he felt that he needed a repeat I and D, which he had. His IV ceftriaxone was extended at that time. The patient states that he did have a repeat outpatient MRI completed at which time he was felt to have a slight collection on the lateral portion of his forearm. He was readmitted to the hospital for probable I and D of this area. The patient is anticipating that surgery soon. He was placed on IV ceftriaxone upon admission. Since admission, the patient did have repeat lab work completed. His white blood cell count was 9.51, and his creatinine was 0.87 on admission. He has been afebrile. He states that he does not have much pain in his left forearm at this time. Past Medical/Surgical History Medical Problems: (1) Failure of outpatient treatment (2) Left arm cellulitis Surgical Hx: Left olecranon bursectomy Repeat Left arm I & D Family History Noncontributory Social History Smoking Status: Never Smoker Drug Use: none Marital Status: Occupation Status: employed Allergies Coded Allergies: No Known Allergies (Unverified , 12/16/16) Home Medications Reported Home Medications Medications Dose Route/Sig Max Daily Dose Days Date Category Ceftriaxone Sodium 2 Gm Inj 2 Gm IV DAILY 7 12/19/16 Rx Metformin HCl 500 Mg Tab 500 Mg PO BIDM 12/19/16 Rx Lantus Solostar (Insulin Glargine) 100 Unit/Ml Inj 30 Units SC DAILY 12/19/16 Rx Current Inpatient Medications Current Inpatient Medications Medications (Trade) Dose Ordered Sig/Rj Route Start Time Stop Time Status Last Admin Dose Admin Oxycodone/ Acetaminophen (Percocet 5-325mg Tab) `1-2 TABS FOR PAIN `1 TAB... Q4H PRN PO 01/01/17 17:30 01/15/17 17:29 Ceftriaxone Sodium 2000 mg/ Dextrose 70 ml @ 140 mls/hr DAILY@1000 IV 01/02/17 10:00 01/12/17 09:59 01/02/17 10:03 140 MLS/HR Glucose (Glucose 40% Gel) 15-30 GRAMS 15 GRAMS... UD PRN PO 01/01/17 18:15 01/31/17 18:14 Glucose (Glucose Chew Tab) 4-8 Tablets 4 Tabl... UD PRN PO 01/01/17 18:15 01/31/17 18:14 Dextrose (Dextrose 50% 50ML Syringe) 25-50ML OF 50% DW IV FOR... UD PRN IV 01/01/17 18:15 01/31/17 18:14 Glucagon (Glucagon Inj) 1 mg UD PRN SQ 01/01/17 18:15 01/31/17 18:14 Heparin Sodium (Porcine) (Heparin 10 Unit/ ml 5 ml Flush) 5 ml PRN PRN FLUSH 01/01/17 23:15 01/31/17 23:14 Insulin Aspart (novoLOG ASPART) SLIDING SCALE Q6 SC 01/02/17 00:00 02/01/17 00:00 01/02/17 00:35 1 UNITS Sodium Chloride 1,000 ml @ 125 mls/hr Q8H IV 01/02/17 00:15 02/01/17 00:14 01/02/17 08:33 125 MLS/HR Insulin Glargine (Lantus Solostar Pen) 10 units DAILY SC 01/02/17 09:30 02/01/17 09:29 01/02/17 09:31 10 UNITS Review of Systems Constitutional: No fever, No chills, No sweats, No weakness, No fatigue Eyes: No worsening of vision ENT: No hearing loss Respiratory: No cough, No shortness of breath Cardiovascular: No chest pain Abdomen: + diarrhea (loose stools on and off- no watery diarrhea), No pain, No nausea, No vomiting Musculoskeletal: + swelling (left elbow and forearm- mild pain) Genitourinary - Male: No hematuria, No dysuria Integumentary: + color change (erythema of left arm prior to repeat I & D, none really since then, but reports drainage of left arm/ elbow), No rash, No itch Physical Exam Date Time Temp Pulse Resp B/P (MAP) Pulse Ox O2 Delivery O2 Flow Rate FiO2 01/02/17 08:00 Room Air 01/02/17 07:14 36.7 82 16 166/90 (115) 95 Room Air 01/02/17 00:26 96 180/90 (120) 01/01/17 23:25 36.9 86 18 184/97 (126) 96 Room Air 01/01/17 23:25 Room Air 01/01/17 17:02 37.1 100 18 120/74 Room Air 01/01/17 17:00 37.1 100 18 120/74 (89) 99 Room Air 01/01/17 16:45 99 Room Air General Appearance: WD/WN, no apparent distress Head: normocephalic, atraumatic Eyes: normal inspection, sclerae normal ENT: hearing grossly normal Neck: supple, trachea midline Respiratory/Chest: no respiratory distress, no accessory muscle use Cardiovascular: regular rate, rhythm Extremities/Musculoskelatal: + pertinent finding (left arm with large bandage in place currently. Appears C/D/I) Neurologic/Psych: alert, normal mood/affect Skin: normal color, warm/dry, no rash Laboratory Results Last 24 Hours Test 01/01/17 17:45 01/01/17 20:35 01/01/17 22:34 01/02/17 00:22 Bedside Glucose 182 mg/dl 159 mg/dl 143 mg/dl White Blood Count 9.51 K/uL Red Blood Count 3.77 M/uL Hemoglobin 10.4 g/dL Hematocrit 32.0 % Mean Corpuscular Volume 84.9 fL Mean Corpuscular Hemoglobin 27.6 pg Mean Corpuscular Hemoglobin Concent 32.5 g/dl Platelet Count 364 K/uL Mean Platelet Volume 7.8 fL Neutrophils (%) (Auto) 69.6 % Lymphocytes (%) (Auto) 18.1 % Monocytes (%) (Auto) 9.4 % Eosinophils (%) (Auto) 1.3 % Basophils (%) (Auto) 0.4 % Neutrophils # (Auto) 6.63 K/uL Lymphocytes # (Auto) 1.72 K/uL Monocytes # (Auto) 0.89 K/uL Eosinophils # (Auto) 0.12 K/uL Basophils # (Auto) 0.04 K/uL RDW Standard Deviation 38.1 fL RDW Coefficient of Variation 12.4 % Immature Granulocyte % (Auto) 1.2 % Immature Granulocyte # (Auto) 0.11 K/uL Sodium Level 134 mmol/L Potassium Level 4.3 mmol/L Chloride Level 98 mmol/L Carbon Dioxide Level 30 mmol/L Anion Gap 6.0 mmol/L Blood Urea Nitrogen 16 mg/dl Creatinine 0.87 mg/dl Est Creatinine Clear Calc Drug Dose 104.4 ml/min Estimated GFR () 113.4 Estimated GFR (Non- 97.8 BUN/Creatinine Ratio 17.8 Random Glucose 175 mg/dl Calcium Level 8.7 mg/dl Test 01/02/17 06:01 01/02/17 09:49 Bedside Glucose 118 mg/dl White Blood Count 8.41 K/uL Red Blood Count 3.67 M/uL Hemoglobin 10.6 g/dL Hematocrit 31.1 % Mean Corpuscular Volume 84.7 fL Mean Corpuscular Hemoglobin 28.9 pg Mean Corpuscular Hemoglobin Concent 34.1 g/dl RDW Standard Deviation 38.2 fL RDW Coefficient of Variation 12.5 % Platelet Count 341 K/uL Mean Platelet Volume 7.7 fL Sodium Level 137 mmol/L Potassium Level 4.5 mmol/L Chloride Level 104 mmol/L Carbon Dioxide Level 32 mmol/L Anion Gap 1.0 mmol/L Blood Urea Nitrogen 11 mg/dl Creatinine 0.62 mg/dl Est Creatinine Clear Calc Drug Dose 146.5 ml/min Estimated GFR () 130.3 Estimated GFR (Non- 112.5 BUN/Creatinine Ratio 18.2 Random Glucose 128 mg/dl Calcium Level 8.3 mg/dl Assessment & Plan Patient with left septic olecranon bursitis with MSSA now with continued drainage of his wound. The patient is anticipated to have repeat I & D of the left forearm. He is currently on IV Ceftriaxone 2 g daily which is appropriate pending repeat cultures. Will add PO Rifampin for extra staph coverage for now. We will follow. PROVIDER ADDENDUM: Patient examined and reviewed with [facility].agree with above assessment.
--- NOTE | 2017-01-02 13:46 | Hospitalist Progress Note ---
Hospitalist Progress Note Date of Service Jan 02, 2017. (Antonia Patel ., BLANCHEC) Subjective Pt evaluation today including: conversation w/ patient, conversation w/ family ( at bedside), physical exam, chart review, lab review, review of inpatient medication list Pain: None PO Intake: NPO Voiding: no voiding problems Patient reports feeling well. He currently denies any pain in his left upper extremity. He complains of swelling throughout the LUE and into his left hand. He states that the swelling limits the strength of his left hand somewhat. He admits to some diarrhea but denies any hematochezia or melena. The patient denies fevers, chills, sweats, chest pain, palpitations, claudication, cough, wheezing, shortness of breath, nausea, vomiting, abdominal pain, dysuria, hematuria, urinary retention, paralysis, numbness and tingling. Additional Comments: See HPI for pertinent positives and negatives. All other systems reviewed and negative. (Antonia Patel PA-C) Objective Vital Signs Date Time Temp Pulse Resp B/P (MAP) Pulse Ox O2 Delivery O2 Flow Rate FiO2 01/02/17 08:00 Room Air 01/02/17 07:14 36.7 82 16 166/90 (115) 95 Room Air 01/02/17 00:26 96 180/90 (120) 01/01/17 23:25 36.9 86 18 184/97 (126) 96 Room Air 01/01/17 23:25 Room Air 01/01/17 17:02 37.1 100 18 120/74 Room Air 01/01/17 17:00 37.1 100 18 120/74 (89) 99 Room Air 01/01/17 16:45 99 Room Air (Antonia Patel .АННА-C) Physical Exam Notes: General appearance: +Obese. Well-developed, well-nourished, no apparent distress Head: Normocephalic, atraumatic Eyes: Normal inspection, PERRL, EOMI ENT: Normal ENT inspection, hearing grossly normal, pharynx normal Neck: Supple, no JVD, trachea midline Respiratory/Chest: Lungs clear to auscultation, normal breath sounds, no respiratory distress Cardiovascular: Regular rate & rhythm, no gallop, no murmur Abdomen/GI: Normal bowel sounds, non-tender, soft Extremities/Musculoskeletal: +LUE wrapped in delmar bandage. 2+ pitting edema LUE. Decreased director of design strength L hand compared to right. Normal cap refill. 1+ pitting edema lower extremities bilaterally. Neurological/Psych: Alert, normal mood/affect, oriented x 3 Skin: Normal color, warm/dry, no rash (Antonia Patel ., [place]) Laboratory Results Last 24 Hours Test 01/01/17 17:45 01/01/17 20:35 01/01/17 22:34 01/02/17 00:22 Bedside Glucose 182 mg/dl 159 mg/dl 143 mg/dl White Blood Count 9.51 K/uL Red Blood Count 3.77 M/uL Hemoglobin 10.4 g/dL Hematocrit 32.0 % Mean Corpuscular Volume 84.9 fL Mean Corpuscular Hemoglobin 27.6 pg Mean Corpuscular Hemoglobin Concent 32.5 g/dl Platelet Count 364 K/uL Mean Platelet Volume 7.8 fL Neutrophils (%) (Auto) 69.6 % Lymphocytes (%) (Auto) 18.1 % Monocytes (%) (Auto) 9.4 % Eosinophils (%) (Auto) 1.3 % Basophils (%) (Auto) 0.4 % Neutrophils # (Auto) 6.63 K/uL Lymphocytes # (Auto) 1.72 K/uL Monocytes # (Auto) 0.89 K/uL Eosinophils # (Auto) 0.12 K/uL Basophils # (Auto) 0.04 K/uL RDW Standard Deviation 38.1 fL RDW Coefficient of Variation 12.4 % Immature Granulocyte % (Auto) 1.2 % Immature Granulocyte # (Auto) 0.11 K/uL Sodium Level 134 mmol/L Potassium Level 4.3 mmol/L Chloride Level 98 mmol/L Carbon Dioxide Level 30 mmol/L Anion Gap 6.0 mmol/L Blood Urea Nitrogen 16 mg/dl Creatinine 0.87 mg/dl Est Creatinine Clear Calc Drug Dose 104.4 ml/min Estimated GFR () 113.4 Estimated GFR (Non- 97.8 BUN/Creatinine Ratio 17.8 Random Glucose 175 mg/dl Calcium Level 8.7 mg/dl Test 01/02/17 06:01 01/02/17 09:49 Bedside Glucose 118 mg/dl White Blood Count 8.41 K/uL Red Blood Count 3.67 M/uL Hemoglobin 10.6 g/dL Hematocrit 31.1 % Mean Corpuscular Volume 84.7 fL Mean Corpuscular Hemoglobin 28.9 pg Mean Corpuscular Hemoglobin Concent 34.1 g/dl RDW Standard Deviation 38.2 fL RDW Coefficient of Variation 12.5 % Platelet Count 341 K/uL Mean Platelet Volume 7.7 fL Sodium Level 137 mmol/L Potassium Level 4.5 mmol/L Chloride Level 104 mmol/L Carbon Dioxide Level 32 mmol/L Anion Gap 1.0 mmol/L Blood Urea Nitrogen 11 mg/dl Creatinine 0.62 mg/dl Est Creatinine Clear Calc Drug Dose 146.5 ml/min Estimated GFR () 130.3 Estimated GFR (Non- 112.5 BUN/Creatinine Ratio 18.2 Random Glucose 128 mg/dl Calcium Level 8.3 mg/dl (Antonia Patel ., АННА-C) Assessment and Plan 56 y/o male with a history of recently diagnosed DM II and recent left septic olecranon bursitis s/p left elbow bursectomy who presents with continued drainage, erythema and swelling. The patient had a PICC line and had been taking Rocephin. Pt admitted for more IV antibiotics, ID consult, and I&D with Dr. Flores. Left septic olecranon bursitis--stable -Admit to med/surg -Pt scheduled for I&D this afternoon at 1700 -Pt NPO for procedure -Infectious disease consulted, appreciate recs: Continue Rocephin pending cultures. Add PO Rifampin. -Continue Rocephin 2 mg IV qd -Rifampin 300 mg PO BID -Pain management, DVT prophylaxis, and PT/OT as per primary team Tachycardia--resolved -Pt received 1L NSS bolus last night -Continue NSS at 125 cc/hr DM II--last HgbA1c checked 12/16/16 was 11.8 -Hold metformin -Lantus decreased to 10 units SC qd -Insulin sliding scale -Check BSGs q ac and qhs or q6h while NPO Thank you for this consultation. We will continue to follow. (Antonia Patel ., АННА-C) I agree with PA assessment and plan and have seen and examined this pt myself Labs and vitals reviewed No pain or distress noted Left elbow bursitis Currently NPO for I&D ID consulted as well Recent MSSA growth Agree with antibx at this time (Jd Gracia D.O.)
[2017-01-02] MEDS ORDERED: BACITRACIN 50000 UNIT VIAL ONE (15:00)
[2017-01-02] MEDS ORDERED: BUPIVACAINE 0.5 % 5 MG/1 ML MPF 30ML VIAL ONE (15:00)
[2017-01-02] MEDS ORDERED: FENTANYL CITRATE INJ 50 MCG/1 ML 2 ML VIAL ONE ×2 (16:48→17:55)
[2017-01-02] MEDS ORDERED: MIDAZOLAM HCL 1 MG/ML 2ML VIAL ONE (16:48)
[2017-01-02] MEDS ORDERED: HYDROmorphone INJ 2 MG/ML SYR/VIAL IV PRN (17:00)
[2017-01-02] MEDS ORDERED: EpHEDrine SULFATE INJ 50 MG/ML AMP IV PRN (17:00)
[2017-01-02] MEDS ORDERED: PHENYLEPHRINE 100MCG/ML 5ML SYR IV PRN (17:00)
[2017-01-02] MEDS ORDERED: FENTANYL CITRATE INJ 50 MCG/1 ML 2 ML VIAL IV PRN (17:00)
[2017-01-02] MEDS ORDERED: ATROPINE SULFATE 0.1 MG/ML 5ML SYR IV PRN (17:00)
[2017-01-02] MEDS ORDERED: MEPERIDINE HCL 25 MG/ML CARP IV PRN (17:00)
[2017-01-02] MEDS ORDERED: FLUMAZENIL 0.1 MG/1 ML 10 ML VIAL IV PRN (17:00)
[2017-01-02] MEDS ORDERED: NALOXONE HCL 0.4 MG/1 ML VIAL/CARP IV PRN (17:00)
[2017-01-02] MEDS ORDERED: ONDANSETRON INJ 2 MG/ML 2 ML VIAL IV PRN ×2 (17:00→19:00)
--- NOTE | 2017-01-02 17:24 | History & Physical Bridge Note ---
H&P Re-Evaluation Bridge Note: I have examined the patient, reviewed the History & Physical and in the interval since the performance of the History & Physical I have noted the following changes of clinical significance: No changes noted will plan for left forearm and left olecranon burstitis I and D
[2017-01-02] MEDS ORDERED: PROPOFOL IV EMULSION 10 MG/ML 20 ML VIAL IV ONE (17:56)
[2017-01-02] MEDS ORDERED: LIDOCAINE HCL 2% 2 ML VIAL (20MG/ML) ONE (17:56)
[2017-01-02] MEDS ORDERED: ONDANSETRON INJ 2 MG/ML 2 ML VIAL ONE (17:56)
[2017-01-02] MEDS ORDERED: EpHEDrine SULFATE 50MG/5ML SYR ONE (18:34)
[2017-01-02] MEDS ORDERED: PHENYLEPHRINE 100MCG/ML 5ML SYR ONE (18:34)
--- NOTE | 2017-01-02 18:57 | [facility] Post Operative Brief Note ---
Immediate Operative Summary Operative Date Jan 02, 2017. Pre-Operative Diagnosis Left forearm Bursitis Post-Operative Diagnosis Left forearm Bursitis Procedure(s) Performed Left Elbow / Forearm Incision and Drainage Surgeon Dr Omar Flores Health Science Writer Surgeon(s) none Estimated Blood Loss 20ml Findings gross pus in anterior sub q tissues. fascia and muscle looked ok Specimens #1-Abcess left anterior elbow, culture and sensitivity, gram stain, anaerobic A-Fascia anterior left elbow B-Subcutaneous tissue left elbow Drains vac Anesthesia gen Complication(s) None Disposition Recovery Room / PACU
[2017-01-02] MEDS: LABETALOL HCL IV 5 MG/ML 20ML IV PRN ×2 (18:58→19:05)
[2017-01-02] MEDS ORDERED: MoRPHine SULFATE 4 MG/ML 1 ML CARP\\VIAL IV PRN (19:00)
--- NOTE | 2017-01-02 19:00 | Anesthesiology Progress Note ---
Anesthesia Post Op Note Date & Time Jan 02, 2017 at 18:58 Vital Signs Pain Intensity: 0.0 Vital Signs Past 12 Hours Date Time Temp Pulse Resp B/P (MAP) Pulse Ox O2 Delivery O2 Flow Rate FiO2 01/02/17 17:10 36.7 86 16 194/95 (128) 97 Room Air 01/02/17 16:05 79 162/74 (103) 01/02/17 15:00 36.4 86 18 185/106 (132) 98 Room Air 01/02/17 08:00 Room Air 01/02/17 07:14 36.7 82 16 166/90 (115) 95 Room Air Notes Mental Status: alert / awake / arousable, participated in evaluation Pt Amnestic to Procedure: Yes Nausea / Vomiting: adequately controlled Pain: adequately controlled Airway Patency, RR, SpO2: stable & adequate BP & HR: see Notes Hydration State: stable & adequate Anesthetic Complications: no major complications apparent The patient did well. He was hypertensive in the perioperative period and was given labetalol in the PACU.
[2017-01-02] MEDS: RIFAMPIN 300 MG CAP PO SCH (19:47)
--- NOTE | 2017-01-02 22:13 | OPERATIVE REPORT ---
DATE OF OPERATION: 01/02/2017 PREOPERATIVE DIAGNOSES: 1. Left forearm anterior abscess. 2. Left olecranon bursitis. PROCEDURE: 1. Left forearm I&D of abscess. 2. Left forearm I&D olecranon bursitis. 3. Application of wound VAC. 4. Fascial biopsy. ANESTHESIA: General. INDICATIONS: This is a gentleman with new onset diabetes who presents with persistent drainage from the elbow. He is status post irrigation and debridement x2. MRI documents anterior fluid collection. Gas was seen in the soft tissues, which may represent post-surgical changes versus necrotizing fasciitis. Clinically, the patient does not look ill, septic and is not febrile. ANESTHESIA: General. FINDINGS: Gross pus in the anterior soft tissues, fascia has a grossly normal appearance, muscle did appear to be normal without any infection. There is minimal infection in the olecranon bursa. DESCRIPTION OF PROCEDURE: I opened up the patient's previous sutures over the olecranon bursa. Dissection was carried down through the skin and subcutaneous tissue. There was evidence of infection in the olecranon bursa, but this was a much smaller amount than previously. I performed debridement of skin, subcutaneous tissue and fascia in a 2 x 2 area with scalpels, rongeurs, and curettes. The area was copiously irrigated with 1 liter of bacitracin impregnated normal saline. Attention was focused over the anterior forearm. The patient had an area of induration over the anterior forearm. I made a longitudinal incision approximately 4 cm in length directly over the area. Dissection was carried down through the skin and subcutaneous tissue. Significant amount of gross pus was encountered and the infected fluid. This was sent for culture. I performed debridement extensively in the area of skin, subcutaneous tissue and fascia. There is evidence of necrotic subcutaneous fat. The underlying fascia did appear to be grossly normal. I excised a piece of the anterior fascia and sent this for biopsy. I also sent some of this subcutaneous tissue for pathology as well. There is an infection, which has spread in the superficial layers down to the mid aspect of the forearm. There did not appear to be any deeper infection; however. I elected to proceed with a VAC application. A black VAC sponge was cut to the appropriate size. The tourniquet was let down, hemostasis was obtained with a bipolar electrocautery. The posterior olecranon incision was closed with 3-0 nylon. The anterior incision was packed with a VAC sponge and the VAC adherent was placed. This resulted in a good seal. This was hooked up to the VAC machine at 125 mg continuous suction. There was no leak. The patient was placed in a soft dressing and was sent to the PACU in a stable condition. Postoperative plan will be to monitor cultures and pathology. Continue VAC sponge. I attest to the content of the Intraoperative Record and any orders documented therein. Any exception s are noted below.
[2017-01-03 03:51] VITALS: BP 132/65; PULSE 100; TEMP 36.8; O2SAT 96
[2017-01-03 05:57] LABS: HEMATOCRIT 28.8 % (42-52); MEAN CELL VOLUME 84.7 fL (80-100); MEAN CORPUSCULAR HEMOGLOBIN 28.2 pg (25-34); MEAN CORPUSCULAR HGB CONC 33.3 g/dl (32-36); MEAN PLATELET VOLUME 7.8 fL (7.4-10.4); PLATELET COUNT 297 K/uL (130-400); WHITE BLOOD COUNT 7.24 K/uL (4.8-10.8)
[2017-01-03] MEDS: RIFAMPIN 300 MG CAP PO SCH ×2 (06:22→18:07)
[2017-01-03 06:24] LABS: BUN/CREATININE RATIO 17.7 (10-20); CALCIUM 8.2 mg/dl (8.5-10.1); CREATININE 0.59 mg/dl (0.60-1.40); POTASSIUM 4.5 mmol/L (3.5-5.1)
--- NOTE | 2017-01-03 07:32 | PROGRESS NOTE ---
DATE: 01/03/2017 SUBJECTIVE: Elan is seen at bedside today. Has no complaints. Denies any fever or chills. He states he feels well. OBJECTIVE: The patient is afebrile. Vital signs are stable. He appears in no acute distress. Left upper extremity examination, he has moderate to significant swelling in the dorsal aspect of the hand. He can flex and extend the digits of the hand and has supple motion of the elbow without significant discomfort. VAC is intact at 125 continuous. ASSESSMENT: Postop day 1 I&D elbow abscess and olecranon bursitis. PLAN: At this point in time, will continue the VAC sponge. I appreciate infectious disease recommendations. Prior MRI did show gas in the soft tissues. Radiologist did suggest this could represent necrotizing fasciitis. However, I feel that these changes could most likely represent gas in the soft tissues as I did extensive subcutaneous blunt dissection during surgery. Will continue Rocephin and rifampin for now. I did send for cultures as well as fascia to rule out necrotizing fasciitis to pathology. We will continue to follow. May consider discharge tomorrow if cultures and pathology do not show anything remarkable. The patient already had a PICC line. JINNY
[2017-01-03 08:10] VITALS: BP 164/86; PULSE 90; TEMP 36.8; O2SAT 95
[2017-01-03 08:48] VITALS: O2SAT 95
[2017-01-03] MEDS: SODIUM CHLORIDE 0.9% 1000ML 1,000 ML IV SCH ×2 (08:48→16:21)
[2017-01-03] MEDS: INSULIN ASPART 100 UNITS/ML 3 ML PEN SC SCH ×4 (08:54→21:21)
[2017-01-03] MEDS: METFORMIN HCL 500 MG TAB PO SCH ×2 (08:55→18:07)
[2017-01-03] MEDS: INSULIN GLARGINE SOLOSTAR 100 UNITS/ML 3 ML PEN SC SCH (08:56)
[2017-01-03] MEDS ORDERED: CEFTRIAXONE SODIUM 2 GM IV SCH (09:00)
[2017-01-03] MEDS ORDERED: INSULIN GLARGINE SOLOSTAR 100 UNITS/ML 3 ML PEN SC SCH (09:00)
--- NOTE | 2017-01-03 09:34 | Anesthesiology Progress Note ---
Anesthesia Post Op Note Date & Time Jan 03, 2017 at 09:33 Vital Signs Pain Intensity: 0.0 Vital Signs Past 12 Hours Date Time Temp Pulse Resp B/P (MAP) Pulse Ox O2 Delivery O2 Flow Rate FiO2 01/03/17 08:48 95 Room Air 01/03/17 08:10 36.8 90 16 164/86 (112) 95 Room Air 01/03/17 07:15 Room Air 01/03/17 03:51 36.8 100 16 132/65 (87) 96 Room Air 01/02/17 22:42 36.7 101 18 136/72 (93) 96 Room Air Notes Mental Status: alert / awake / arousable, participated in evaluation Pt Amnestic to Procedure: Yes Nausea / Vomiting: adequately controlled Pain: adequately controlled Airway Patency, RR, SpO2: stable & adequate BP & HR: stable & adequate Hydration State: stable & adequate Anesthetic Complications: no major complications apparent
[2017-01-03 09:56] VITALS: Ht 170.2 cm; Wt 91.0 kg
[2017-01-03] MEDS: CEFTRIAXONE SOD INJ 2000 MG in DEXTROSE 5% 50ML IV SCH (10:23)
[2017-01-03 11:51] VITALS: BP 121/69; PULSE 98; TEMP 36.7; O2SAT 97
--- NOTE | 2017-01-03 13:50 | Hospitalist Progress Note ---
Hospitalist Progress Note Date of Service Jan 03, 2017. (Antonia Patel ., BLANCHEC) Subjective Pt evaluation today including: conversation w/ patient, physical exam, chart review, lab review, review of inpatient medication list Pain: None PO Intake: Tolerating PO diet Voiding: no voiding problems The patient reports feeling well. He tolerated the procedure yesterday well. He denies any pain in the LUE. The swelling persists. He also complains of swelling in his lower extremities bilaterally. The patient denies fevers, chills, sweats, chest pain, palpitations, claudication, cough, wheezing, shortness of breath, nausea, vomiting, abdominal pain, dysuria, hematuria, urinary retention, paralysis, weakness, numbness and tingling. Additional Comments: See HPI for pertinent positives and negatives. All other systems reviewed and negative. (Antonia Patel ., BLANCHEC) Objective Vital Signs Date Time Temp Pulse Resp B/P (MAP) Pulse Ox O2 Delivery O2 Flow Rate FiO2 01/03/17 11:51 36.7 98 20 121/69 (86) 97 Room Air 01/03/17 08:48 95 Room Air 01/03/17 08:10 36.8 90 16 164/86 (112) 95 Room Air 01/03/17 07:15 Room Air 01/03/17 03:51 36.8 100 16 132/65 (87) 96 Room Air 01/02/17 22:42 36.7 101 18 136/72 (93) 96 Room Air 01/02/17 21:20 168/90 (116) 01/02/17 20:25 36.4 95 16 180/101 (127) 96 Room Air 01/02/17 19:55 36.3 94 16 183/99 (127) 98 Room Air 01/02/17 19:25 36.3 88 16 186/97 (126) 96 Room Air 01/02/17 19:25 Room Air 01/02/17 19:25 Room Air 01/02/17 19:22 90 20 96 01/02/17 19:22 88 20 01/02/17 19:21 178/98 01/02/17 19:19 172/99 01/02/17 19:17 87 12 176/100 96 01/02/17 19:17 88 12 01/02/17 19:16 175/100 01/02/17 19:15 86 15 96 01/02/17 19:15 86 15 01/02/17 19:12 36.4 87 15 172/98 94 Mask 10 01/02/17 19:11 172/98 01/02/17 19:10 85 16 94 01/02/17 19:10 85 16 01/02/17 19:09 86 15 94 01/02/17 19:09 86 15 01/02/17 19:06 175/100 01/02/17 19:04 89 18 01/02/17 19:04 90 18 95 01/02/17 19:03 90 13 96 01/02/17 19:03 91 13 01/02/17 19:01 183/100 01/02/17 18:58 96 14 01/02/17 18:58 96 14 94 01/02/17 18:57 183/99 01/02/17 18:56 143/101 01/02/17 18:53 97 19 99 01/02/17 18:53 97 19 01/02/17 18:51 167/102 01/02/17 18:48 94 18 100 01/02/17 18:48 94 18 01/02/17 18:46 182/89 01/02/17 18:44 175/86 01/02/17 18:43 100 13 93 01/02/17 18:43 100 13 01/02/17 18:43 36.0 97 20 175/86 96 Mask 10 01/02/17 17:10 36.7 86 16 194/95 (128) 97 Room Air 01/02/17 16:05 79 162/74 (103) 01/02/17 15:00 36.4 86 18 185/106 (132) 98 Room Air (Antonia Patel, PA-C) Physical Exam Notes: General appearance: +Obese. Well-developed, well-nourished, no apparent distress Head: Normocephalic, atraumatic Eyes: Normal inspection, PERRL, EOMI ENT: Normal ENT inspection, hearing grossly normal, pharynx normal Neck: Supple, no JVD, trachea midline Respiratory/Chest: Lungs clear to auscultation, normal breath sounds, no respiratory distress Cardiovascular: Regular rate & rhythm, no gallop, no murmur Abdomen/GI: Normal bowel sounds, non-tender, soft Extremities/Musculoskeletal: +LUE wrapped in delmar bandage with wound vac. 2+ pitting edema LUE. Decreased toddler lead teacher strength L hand compared to right. Normal cap refill. 1+ pitting edema lower extremities bilaterally. Neurological/Psych: Alert, normal mood/affect, oriented x 3 Skin: Normal color, warm/dry, no rash (Antonia Patel ., АННА-C) Laboratory Results Last 24 Hours Test 01/02/17 18:53 01/02/17 19:44 01/02/17 21:06 01/03/17 05:39 Bedside Glucose 89 mg/dl 103 mg/dl 126 mg/dl White Blood Count 7.24 K/uL Red Blood Count 3.40 M/uL Hemoglobin 9.6 g/dL Hematocrit 28.8 % Mean Corpuscular Volume 84.7 fL Mean Corpuscular Hemoglobin 28.2 pg Mean Corpuscular Hemoglobin Concent 33.3 g/dl RDW Standard Deviation 37.6 fL RDW Coefficient of Variation 12.3 % Platelet Count 297 K/uL Mean Platelet Volume 7.8 fL Sodium Level 136 mmol/L Potassium Level 4.5 mmol/L Chloride Level 105 mmol/L Carbon Dioxide Level 27 mmol/L Anion Gap 4.0 mmol/L Blood Urea Nitrogen 10 mg/dl Creatinine 0.59 mg/dl Est Creatinine Clear Calc Drug Dose 154.0 ml/min Estimated GFR () 133.0 Estimated GFR (Non- 114.8 BUN/Creatinine Ratio 17.7 Random Glucose 163 mg/dl Calcium Level 8.2 mg/dl Test 01/03/17 08:11 Bedside Glucose 144 mg/dl (Antonia Patel ., PA-C) Assessment and Plan 56 y/o male with a history of recently diagnosed DM II and recent left septic olecranon bursitis s/p left elbow bursectomy who presents with continued drainage, erythema and swelling. The patient had a PICC line and had been taking Rocephin. Pt admitted for more IV antibiotics, ID consult, and I&D with Dr. Flores. Left septic olecranon bursitis s/p I&D--stable -Admit to med/surg -POD #1. Wound vac in place. -Infectious disease consulted, appreciate recs: Continue Rocephin pending cultures. Add PO Rifampin. -Continue Rocephin 2 mg IV qd -Rifampin 300 mg PO BID -Pain management, DVT prophylaxis, and PT/OT as per primary team Tachycardia--resolved -Pt received 1L NSS bolus last night -Continue NSS at 125 cc/hr DM II--last HgbA1c checked 12/16/16 was 11.8 -Hold metformin -Lantus decreased to 10 units SC qd -Insulin sliding scale -Check BSGs q ac and qhs Thank you for this consultation. We will continue to follow. (Antonia Patel ., PA-C) I agree with PA assessment and plan and have seen and examined pt myself Labs and vitals reviewed S/p I&D Cont antibx at this time PICC line already in place No discomfort noted Appreciate ID recs Await cult results (Jd Gracia D.O.)
--- NOTE | 2017-01-03 15:38 | Infectious Disease Progress Nt ---
Progress Note Date of Service Jan 03, 2017. Subjective Pt evaluation today including: conversation w/ patient, physical exam, chart review, lab review, review of studies, review of inpatient medication list Patient is s/p left forearm I and D. Operative record was reviewed today. It was noted that some slight necrotic subcutaneous tissue was in countered along with gross purulence. The patient's culture is showing no growth to date. White blood cell count has been stable and was 7.24 today. creatinine was 0.59. The patient did have a wound VAC placed. He continues on IV ceftriaxone and rifampin. He is tolerating these medications well. All Other Systems: Reviewed and Negative Medications Current Inpatient Medications Medications (Trade) Dose Ordered Sig/Rj Route Start Time Stop Time Status Last Admin Dose Admin Oxycodone/ Acetaminophen (Percocet 5-325mg Tab) `1-2 TABS FOR PAIN `1 TAB... Q4H PRN PO 01/01/17 17:30 01/15/17 17:29 Ceftriaxone Sodium 2000 mg/ Dextrose 70 ml @ 140 mls/hr DAILY@1000 IV 01/02/17 10:00 01/12/17 09:59 01/03/17 10:23 140 MLS/HR Glucose (Glucose 40% Gel) 15-30 GRAMS 15 GRAMS... UD PRN PO 01/01/17 18:15 01/31/17 18:14 Glucose (Glucose Chew Tab) 4-8 Tablets 4 Tabl... UD PRN PO 01/01/17 18:15 01/31/17 18:14 Dextrose (Dextrose 50% 50ML Syringe) 25-50ML OF 50% DW IV FOR... UD PRN IV 01/01/17 18:15 01/31/17 18:14 Glucagon (Glucagon Inj) 1 mg UD PRN SQ 01/01/17 18:15 01/31/17 18:14 Heparin Sodium (Porcine) (Heparin 10 Unit/ ml 5 ml Flush) 5 ml PRN PRN FLUSH 01/01/17 23:15 01/31/17 23:14 Sodium Chloride 1,000 ml @ 125 mls/hr Q8H IV 01/02/17 00:15 02/01/17 00:14 01/03/17 08:48 125 MLS/HR Insulin Glargine (Lantus Solostar Pen) 10 units DAILY SC 01/02/17 09:30 02/01/17 09:29 01/03/17 08:56 10 UNITS Rifampin (Rifadin Cap) 300 mg Q12H PO 01/02/17 19:00 01/12/17 18:59 01/03/17 06:22 300 MG Metformin HCl (Glucophage Tab) 500 mg BIDM PO 01/03/17 08:30 02/02/17 08:29 01/03/17 08:55 500 MG Morphine Sulfate (MoRPHine SULFATE INJ) 4 mg Q1H PRN IV 01/02/17 19:00 01/16/17 18:59 Ondansetron HCl (Zofran Inj) 4 mg ONE PRN IV 01/02/17 19:00 01/03/17 18:59 Diphenhydramine HCl (Benadryl Cap) 25 mg Q6H PRN PO 01/02/17 19:00 02/01/17 18:59 Insulin Aspart (novoLOG ASPART) SLIDING SCALE ACHS SC 01/02/17 21:00 02/01/17 00:00 01/03/17 12:08 1 UNITS Objective Vital Signs Date Time Temp Pulse Resp B/P (MAP) Pulse Ox O2 Delivery O2 Flow Rate FiO2 01/03/17 11:51 36.7 98 20 121/69 (86) 97 Room Air 01/03/17 08:48 95 Room Air 01/03/17 08:10 36.8 90 16 164/86 (112) 95 Room Air 01/03/17 07:15 Room Air 01/03/17 03:51 36.8 100 16 132/65 (87) 96 Room Air 01/02/17 22:42 36.7 101 18 136/72 (93) 96 Room Air 01/02/17 21:20 168/90 (116) 01/02/17 20:25 36.4 95 16 180/101 (127) 96 Room Air 01/02/17 19:55 36.3 94 16 183/99 (127) 98 Room Air 01/02/17 19:25 36.3 88 16 186/97 (126) 96 Room Air 01/02/17 19:25 Room Air 01/02/17 19:25 Room Air 01/02/17 19:22 90 20 96 01/02/17 19:22 88 20 01/02/17 19:21 178/98 01/02/17 19:19 172/99 01/02/17 19:17 87 12 176/100 96 01/02/17 19:17 88 12 01/02/17 19:16 175/100 01/02/17 19:15 86 15 96 01/02/17 19:15 86 15 01/02/17 19:12 36.4 87 15 172/98 94 Mask 10 01/02/17 19:11 172/98 01/02/17 19:10 85 16 94 01/02/17 19:10 85 16 01/02/17 19:09 86 15 94 01/02/17 19:09 86 15 01/02/17 19:06 175/100 01/02/17 19:04 89 18 01/02/17 19:04 90 18 95 01/02/17 19:03 90 13 96 01/02/17 19:03 91 13 01/02/17 19:01 183/100 01/02/17 18:58 96 14 01/02/17 18:58 96 14 94 01/02/17 18:57 183/99 01/02/17 18:56 143/101 01/02/17 18:53 97 19 99 01/02/17 18:53 97 19 01/02/17 18:51 167/102 01/02/17 18:48 94 18 100 01/02/17 18:48 94 18 01/02/17 18:46 182/89 01/02/17 18:44 175/86 01/02/17 18:43 100 13 93 01/02/17 18:43 100 13 01/02/17 18:43 36.0 97 20 175/86 96 Mask 10 01/02/17 17:10 36.7 86 16 194/95 (128) 97 Room Air 01/02/17 16:05 79 162/74 (103) Physical Exam Notes: General: Patient is awake, alert, cooperative, and in no acute distress. Well developed. Well-nourished. Skin: Wound VAC in place on left forearm along with large dressing. All other skin: Normal appearance, texture, and temperature. No apparent rash or ecchymoses. HEENT: Normocephalic and atraumatic. Eyes are anicteric and non-erythematous. EOMI c PERRLA. Hearing intact and without difficulty. Nose appears normal and without drainage. Trachea midline. Thyroid appears normal, and neck is supple. Lungs: No respiratory distress. No accessory muscle use. Heart: Regular rate and rhythm. Musculoskeletal: Freely moving extremities during exam. Neuro: Alert and oriented X3. CN II-XII grossly intact. Sensation and motor function grossly intact. Psych: Mood and affect are normal. Laboratory Results RUN DATE: 01/03/17 [facility] LAB PAGE 1 RUN TIME: 1243 Specimen Inquiry PATIENT: TARI BERRY LOC: [facility] U # : [id number] AGE/SX: 56/M ROOM: [facility] REG : 01/01/[address]: Omar Flores : 1960 BED: 2 DIS : STATUS: ADM IN TLOC: SPEC #: [id number] TREY: 01/02/17 STATUS: RES REQ #: [id number] RECD: 01/02/[address] [facility] [address]: Omar Flores MD SOURCE: ABSCESS ENTR: 01/02/[address] [facility] [address]: Peace Gerardo M.D. [facility]: Florentino Clements MD, Rick D M.D. ORDERED: AER/EMERY CULTSMR Procedure Result Verified Site GRAM STAIN Final 01/03/17 RESULT MANY WBCs SEEN NO ORGANISMS SEEN OR AER/EMERY CULT Preliminary 01/03/17-1242 NO GROWTH TO DATE. Last 24 Hours Test 01/02/17 18:53 01/02/17 19:44 01/02/17 21:06 01/03/17 05:39 Bedside Glucose 89 mg/dl 103 mg/dl 126 mg/dl White Blood Count 7.24 K/uL Red Blood Count 3.40 M/uL Hemoglobin 9.6 g/dL Hematocrit 28.8 % Mean Corpuscular Volume 84.7 fL Mean Corpuscular Hemoglobin 28.2 pg Mean Corpuscular Hemoglobin Concent 33.3 g/dl RDW Standard Deviation 37.6 fL RDW Coefficient of Variation 12.3 % Platelet Count 297 K/uL Mean Platelet Volume 7.8 fL Sodium Level 136 mmol/L Potassium Level 4.5 mmol/L Chloride Level 105 mmol/L Carbon Dioxide Level 27 mmol/L Anion Gap 4.0 mmol/L Blood Urea Nitrogen 10 mg/dl Creatinine 0.59 mg/dl Est Creatinine Clear Calc Drug Dose 154.0 ml/min Estimated GFR () 133.0 Estimated GFR (Non- 114.8 BUN/Creatinine Ratio 17.7 Random Glucose 163 mg/dl Calcium Level 8.2 mg/dl Test 01/03/17 08:11 01/03/17 11:58 Bedside Glucose 144 mg/dl 156 mg/dl Assessment and Plan Patient with left septic olecranon bursitis with MSSA now with continued drainage of his wound now s/p repeat I & D of the left forearm. Operative cultures are pending. He is currently on IV ceftriaxone 2 grams daily along with p.o. rifampin. He will continue these medications pending culture results. I feel that he likely will need at least another 7-14 days following his most recent I and D. We will continue to follow this patient. PROVIDER ADDENDUM: Patient reviewed with [place]. Agree with above assessment.
[2017-01-03 15:45] VITALS: BP 131/74; PULSE 95; TEMP 37; O2SAT 97
[2017-01-03 23:07] VITALS: BP 161/93; PULSE 94; TEMP 36.7; O2SAT 97
[2017-01-04] MEDS: SODIUM CHLORIDE 0.9% 1000ML 1,000 ML IV SCH ×2 (00:06→08:30)
[2017-01-04 05:30] LABS: HEMATOCRIT 28.4 % (42-52); MEAN CELL VOLUME 84.3 fL (80-100); MEAN CORPUSCULAR HEMOGLOBIN 28.2 pg (25-34); MEAN CORPUSCULAR HGB CONC 33.5 g/dl (32-36); MEAN PLATELET VOLUME 7.8 fL (7.4-10.4); PLATELET COUNT 278 K/uL (130-400); RED BLOOD COUNT 3.37 M/uL (4.7-6.1); WHITE BLOOD COUNT 6.66 K/uL (4.8-10.8)
[2017-01-04 06:02] LABS: BUN/CREATININE RATIO 15.9 (10-20); CALCIUM 8.2 mg/dl (8.5-10.1); CREATININE 0.66 mg/dl (0.60-1.40); POTASSIUM 4.4 mmol/L (3.5-5.1)
[2017-01-04] MEDS: RIFAMPIN 300 MG CAP PO SCH ×2 (06:42→18:10)
[2017-01-04 07:49] VITALS: BP 168/87; PULSE 90; TEMP 37; O2SAT 93
[2017-01-04] MEDS: INSULIN ASPART 100 UNITS/ML 3 ML PEN SC SCH ×3 (08:00→17:15)
[2017-01-04] MEDS: INSULIN GLARGINE SOLOSTAR 100 UNITS/ML 3 ML PEN SC SCH (08:25)
[2017-01-04] MEDS: METFORMIN HCL 500 MG TAB PO SCH ×2 (08:30→18:07)
[2017-01-04 08:31] VITALS: O2SAT 93
[2017-01-04] MEDS: CEFTRIAXONE SOD INJ 2000 MG in DEXTROSE 5% 50ML IV SCH (10:30)
[2017-01-04] MEDS ORDERED: NURSING VERBAL MED ORDER ONE (11:15)
--- NOTE | 2017-01-04 12:01 | Infectious Disease Progress Nt ---
Progress Note Date of Service Jan 04, 2017. Subjective Pt evaluation today including: conversation w/ patient, conversation w/ family , physical exam, chart review, lab review, review of studies, review of inpatient medication list Patient is feeling well this morning. He states that he does not have any pain in his left arm. He is overall feeling well. He continues to tolerate his antibiotics well. He states that he did have some mildly loose stools yesterday , but his stools have tapered off today. He is scheduled for follow-up with Dr. Mcintosh in the office next week, but will likely need wound care follow-up. He does have a wound VAC in place, and is waiting for news on at home wound VAC. He has been afebrile. His white blood cell count today was 6.66. His creatinine was 0.66. All Other Systems: Reviewed and Negative Medications Current Inpatient Medications Medications (Trade) Dose Ordered Sig/Rj Route Start Time Stop Time Status Last Admin Dose Admin Oxycodone/ Acetaminophen (Percocet 5-325mg Tab) `1-2 TABS FOR PAIN `1 TAB... Q4H PRN PO 01/01/17 17:30 01/15/17 17:29 Ceftriaxone Sodium 2000 mg/ Dextrose 70 ml @ 140 mls/hr DAILY@1000 IV 01/02/17 10:00 01/12/17 09:59 01/04/17 10:30 140 MLS/HR Glucose (Glucose 40% Gel) 15-30 GRAMS 15 GRAMS... UD PRN PO 01/01/17 18:15 01/31/17 18:14 Glucose (Glucose Chew Tab) 4-8 Tablets 4 Tabl... UD PRN PO 01/01/17 18:15 01/31/17 18:14 Dextrose (Dextrose 50% 50ML Syringe) 25-50ML OF 50% DW IV FOR... UD PRN IV 01/01/17 18:15 01/31/17 18:14 Glucagon (Glucagon Inj) 1 mg UD PRN SQ 01/01/17 18:15 01/31/17 18:14 Heparin Sodium (Porcine) (Heparin 10 Unit/ ml 5 ml Flush) 5 ml PRN PRN FLUSH 01/01/17 23:15 01/31/17 23:14 01/04/17 11:20 5 ML Insulin Glargine (Lantus Solostar Pen) 10 units DAILY SC 01/02/17 09:30 02/01/17 09:29 01/04/17 08:25 10 UNITS Rifampin (Rifadin Cap) 300 mg Q12H PO 01/02/17 19:00 01/12/17 18:59 01/04/17 06:42 300 MG Metformin HCl (Glucophage Tab) 500 mg BIDM PO 01/03/17 08:30 02/02/17 08:29 01/04/17 08:30 500 MG Morphine Sulfate (MoRPHine SULFATE INJ) 4 mg Q1H PRN IV 01/02/17 19:00 01/16/17 18:59 Diphenhydramine HCl (Benadryl Cap) 25 mg Q6H PRN PO 01/02/17 19:00 02/01/17 18:59 Insulin Aspart (novoLOG ASPART) SLIDING SCALE ACHS SC 01/02/17 21:00 02/01/17 00:00 01/04/17 12:37 2 UNITS Objective Vital Signs Date Time Temp Pulse Resp B/P (MAP) Pulse Ox O2 Delivery O2 Flow Rate FiO2 01/04/17 08:31 93 Room Air 01/04/17 07:49 37.0 90 18 168/87 (114) 93 Room Air 01/04/17 07:10 Room Air 01/03/17 23:07 36.7 94 16 161/93 (115) 97 Room Air 01/03/17 20:50 Room Air 01/03/17 15:45 37.0 95 18 131/74 (93) 97 Room Air Physical Exam General Appearance: WD/WN, no apparent distress Eyes: normal inspection, sclerae normal ENT: hearing grossly normal Neck: supple, trachea midline Respiratory/Chest: no respiratory distress, no accessory muscle use Cardiovascular: regular rate, rhythm Extremities: + pertinent finding (Dressing in place on left arm. 1+ edema of the right hand.) Neurologic/Psychiatric: alert, normal mood/affect Skin: normal color, warm/dry, no rash Laboratory Results Last 24 Hours Test 01/03/17 17:15 01/03/17 21:01 01/04/17 05:09 01/04/17 08:04 Bedside Glucose 164 mg/dl 156 mg/dl 115 mg/dl White Blood Count 6.66 K/uL Red Blood Count 3.37 M/uL Hemoglobin 9.5 g/dL Hematocrit 28.4 % Mean Corpuscular Volume 84.3 fL Mean Corpuscular Hemoglobin 28.2 pg Mean Corpuscular Hemoglobin Concent 33.5 g/dl RDW Standard Deviation 37.9 fL RDW Coefficient of Variation 12.4 % Platelet Count 278 K/uL Mean Platelet Volume 7.8 fL Sodium Level 138 mmol/L Potassium Level 4.4 mmol/L Chloride Level 105 mmol/L Carbon Dioxide Level 28 mmol/L Anion Gap 5.0 mmol/L Blood Urea Nitrogen 11 mg/dl Creatinine 0.66 mg/dl Est Creatinine Clear Calc Drug Dose 137.7 ml/min Estimated GFR () 127.0 Estimated GFR (Non- 109.6 BUN/Creatinine Ratio 15.9 Random Glucose 119 mg/dl Calcium Level 8.2 mg/dl Test 01/04/17 11:46 Bedside Glucose 182 mg/dl Assessment and Plan Patient with left septic olecranon bursitis with MSSA now with continued drainage of his wound now s/p repeat I & D of the left forearm. Operative cultures are showing no growth. He is currently on IV ceftriaxone 2 grams daily along with p.o. rifampin. Recommend that the patient continue currently abx therapy for 2 more weeks. He has a scheduled office follow up with Dr. Mcintosh next week- will try to change this visit to a wound care follow up so that he can see Dr. Mcintosh, have his wound vac changed, and have his wound properly assessed. Otherwise, the patient is OK for D/C from ID perspective when home IV' s and wound vac in place. Thanks PROVIDER ADDENDUM: Patient reviewed with PA. Agree with above assessment.
[2017-01-04 12:05] VITALS: BP 149/83; PULSE 87; TEMP 37; O2SAT 97
--- NOTE | 2017-01-04 13:41 | Hospitalist Progress Note ---
Hospitalist Progress Note Date of Service Jan 04, 2017. (Antonia Patel ., АННА-C) Subjective Pt evaluation today including: conversation w/ patient, physical exam, chart review, lab review, review of inpatient medication list Pain: None PO Intake: Tolerating PO diet Voiding: no voiding problems The patient reports feeling well. He denies any pain at the I&D site. He states that the swelling in his LUE is improved. The patient denies fevers, chills, sweats, chest pain, palpitations, claudication, cough, wheezing, shortness of breath, nausea, vomiting, abdominal pain, dysuria, hematuria, urinary retention, paralysis, weakness, numbness and tingling. Additional Comments: See HPI for pertinent positives and negatives. All other systems reviewed and negative. (Antonia Patel ., АННА-C) Objective Vital Signs Date Time Temp Pulse Resp B/P (MAP) Pulse Ox O2 Delivery O2 Flow Rate FiO2 01/04/17 12:05 37.0 87 16 149/83 (105) 97 Room Air 01/04/17 08:31 93 Room Air 01/04/17 07:49 37.0 90 18 168/87 (114) 93 Room Air 01/04/17 07:10 Room Air 01/03/17 23:07 36.7 94 16 161/93 (115) 97 Room Air 01/03/17 20:50 Room Air 01/03/17 15:45 37.0 95 18 131/74 (93) 97 Room Air (Antonia Patel ., PA-C) Physical Exam Notes: General appearance: +Obese. Well-developed, well-nourished, no apparent distress Head: Normocephalic, atraumatic Eyes: Normal inspection, PERRL, EOMI ENT: Normal ENT inspection, hearing grossly normal, pharynx normal Neck: Supple, no JVD, trachea midline Respiratory/Chest: +Crackles left base. Normal breath sounds, no respiratory distress Cardiovascular: Regular rate & rhythm, no gallop, no murmur Abdomen/GI: Normal bowel sounds, non-tender, soft Extremities/Musculoskeletal: +L elbow wrapped in guaze. Wound vac off. 1+ pitting edema LUE. 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 Normal cap refill. 1+ pitting edema lower extremities bilaterally. Neurological/Psych: Alert, normal mood/affect, oriented x 3 Skin: Normal color, warm/dry, no rash (Antonia Patel ., BLANCHEC) Laboratory Results Last 24 Hours Test 01/03/17 17:15 01/03/17 21:01 01/04/17 05:09 01/04/17 08:04 Bedside Glucose 164 mg/dl 156 mg/dl 115 mg/dl White Blood Count 6.66 K/uL Red Blood Count 3.37 M/uL Hemoglobin 9.5 g/dL Hematocrit 28.4 % Mean Corpuscular Volume 84.3 fL Mean Corpuscular Hemoglobin 28.2 pg Mean Corpuscular Hemoglobin Concent 33.5 g/dl RDW Standard Deviation 37.9 fL RDW Coefficient of Variation 12.4 % Platelet Count 278 K/uL Mean Platelet Volume 7.8 fL Sodium Level 138 mmol/L Potassium Level 4.4 mmol/L Chloride Level 105 mmol/L Carbon Dioxide Level 28 mmol/L Anion Gap 5.0 mmol/L Blood Urea Nitrogen 11 mg/dl Creatinine 0.66 mg/dl Est Creatinine Clear Calc Drug Dose 137.7 ml/min Estimated GFR () 127.0 Estimated GFR (Non- 109.6 BUN/Creatinine Ratio 15.9 Random Glucose 119 mg/dl Calcium Level 8.2 mg/dl Test 01/04/17 11:46 Bedside Glucose 182 mg/dl (Antonia Patel ., PA-C) Assessment and Plan 56 y/o male with a history of recently diagnosed DM II and recent left septic olecranon bursitis s/p left elbow bursectomy who presents with continued drainage, erythema and swelling. The patient had a PICC line and had been taking Rocephin. Pt admitted for more IV antibiotics, ID consult, and I&D with Dr. Flores. Left septic olecranon bursitis s/p I&D--stable -Admit to med/surg -POD #2 -Infectious disease consulted, appreciate recs: Continue Rocephin pending cultures. Add PO Rifampin. Will need 2 weeks of abx. -Continue Rocephin 2 mg IV qd -Rifampin 300 mg PO BID -Pain management, DVT prophylaxis, and PT/OT as per primary team Tachycardia--resolved -Pt received 1L NSS bolus last night -D/c IVF due to fluid overload DM II--last HgbA1c checked 12/16/16 was 11.8 -Hold metformin -Lantus decreased to 10 units SC qd -Insulin sliding scale -Check BSGs q ac and qhs Pt. is stable from a medical standpoint, we will sign off. Clear for discharge as per primary team. (Antonia Patel ., PA-C) I agree with PA assessment and plan and have seen and examined pt myself VSS and labs reviewed S/P I&D left elbow Cont rocephin and rifampin Pain controlled Pt reports better ROM Stable for DC from medical standpoint F/U with ID and ortho (Jd Gracia, D.O.)
[2017-01-04 15:25] VITALS: BP 153/81; PULSE 93; TEMP 36.5; O2SAT 96
--- NOTE | 2017-01-04 16:42 | Orthopedic Progress Note ---
Orthopedic Progress Note Date of Service Jan 04, 2017. Subjective Post OP Day: 2 Reports: feeling well, Denies: complaints, chest pain, SOB, nausea / vomiting, light headedness, calf pain Additional Notes: Patient was feeling well. He denied any complaints. He state "this is the best its felt in awhile" Objective calves soft nontender, N/V intact, splint C/D/I, capillary refill less than 2 sec., incision C/D/I (serous drainage was seen on the dressing and coming from the wound.), A&O x3 Dressing was removed. There was serous drainage from the medial aspect of the elbow. There was no pus formation or erythema inside the wound. Date Time Temp Pulse Resp B/P (MAP) Pulse Ox O2 Delivery O2 Flow Rate FiO2 01/04/17 15:25 36.5 93 18 153/81 (105) 96 Room Air 01/04/17 12:05 37.0 87 16 149/83 (105) 97 Room Air 01/04/17 08:31 93 Room Air 01/04/17 07:49 37.0 90 18 168/87 (114) 93 Room Air 01/04/17 07:10 Room Air 01/03/17 23:07 36.7 94 16 161/93 (115) 97 Room Air 01/03/17 20:50 Room Air Laboratory Results 24 Hours: Test 01/04/17 05:09 Hematocrit 28.4 % Hemoglobin 9.5 g/dL Assessment & Plan Assessment: POD #2 I & D Left elbow Plan: Patient to be discharged with a vac to allow for wound to absorb the drainage and follow up with Dr. Flores in the office on He will be on IV antibiotics as per ID He will follow up with Dr. Mcintosh as a wound care office visit. Inhouse Planning Pain Management: Percocet, Morphine
[2017-01-04 16:53] VITALS: BP 153/81; PULSE 93; TEMP 36.5; O2SAT 96
[2017-01-04] MEDS ORDERED: RFM300 PO (17:01)
--- NOTE | 2017-01-04 17:02 | Discharge Instructions ---
Discharge Instructions Date of Service Jan 04, 2017. Admission Reason for Admission: Left Elbow And Forearm Infection Discharge Discharge Diagnosis / Problem: S/P I & D Left elbow and forearm Discharge Goals Goal(s): Decrease discomfort, Improve function Activity Recommendations Activity Limitations: per Instructions/Follow-up section . Instructions / Follow-Up Instructions / Follow-Up Patient is to keep a sterile dressing on at all times, he can change this dressing once a day. He should use the operative arm as little as possible till follow up in the office. He is to take IV and PO antibiotics as directed. He will follow up with the wound clinic, Dr. Mcintosh Follow up with Dr. Flores on Saturday. Call [phone] to make an appointment. Current Hospital Diet Patient's current hospital diet: Diabetes Type 2 Diet Discharge Diet Recommended Diet: Diabetes Type 2 Diet Procedures Procedures Performed: Left Elbow / Forearm Incision and Drainage Pending Studies Studies pending at discharge: no Laboratory Results Hemoglobin A1c Test 12/16/16 13:50 Range/Units Estimated Average Glucose 292 mg/dl Hemoglobin A1c 11.8 H 4.5-5.6 % Medical Emergencies . Who to Call and When: Medical Emergencies: If at any time you feel your situation is an emergency, please call 911 immediately. . Non-Emergent Contact Non-Emergency issues call your: Surgeon Call Non-Emergent contact if: temperature is above 101.5, your pain is worsening, wound has increased drainage, wound has increased redness . "Provider Documentation" section prepared by Josemanuel Sterling. . VTE Core Measure Inpt VTE Proph given/why not?: Treatment not indicated
--- NOTE | 2017-01-04 17:18 | PROGRESS NOTE ---
DATE: 01/04/2017 SUBJECTIVE: Elan was seen at the bedside. He denies any fever or chills or chest pain. He states he is feeling well. He feels arm has better motion and function compared to prior to the most recent irrigation and debridement. OBJECTIVE: Left elbow examination show an intact wound VAC. He has no evidence of fluctuance. He has serous drainage from the VAC. He has no evidence of olecranon bursitis and no evidence of fluid accumulation in the olecranon. ASSESSMENT: Status post incision and drainage of left elbow abscess and olecranon bursitis. PLAN: At this point in time, his wound does show significant improvements. Will continue the VAC. He may be discharged to home. Continue Rocephin as well as rifampin. He will follow up with me on Saturday for repeat wound check.
--- NOTE | 2017-01-11 14:56 | Discharge Summary ---
Orthopedic Discharge Summary Admission Date/Reason Jan 01, 2017 at 16:10 Left Elbow And Forearm Infection. Discharge Date/Disposition Jan 04, 2017 Home with services Diagnosis Principal Diagnosis: left elbow and forearm infection Procedure(s) Performed S/P left elbow and forearm I & D with wound vac application Consultations continue wound clinic and Infectious disease appt Medication Reconciliation New Medications: Rifampin (Rifampin) 300 Mg Cap 300 MG PO Q12H for 14 Days, #28 CAP Continued Medications: Ceftriaxone Sodium (Ceftriaxone Sodium) 2 Gm Inj 2 GM IV DAILY for 7 Days, VIAL Insulin Glargine (Lantus Solostar) 100 Unit/Ml Inj 30 UNITS SC DAILY, #1 BOX Metformin HCl (Metformin HCl) 500 Mg Tab 500 MG PO BIDM, #60 TAB Admission Physical Exam As per Admitting History & Physical. Discharge Instructions Please refer to the electronic Patient Visit Report (Discharge Instructions) for additional information.
[2017-01-30] MEDS ORDERED: CEPH500C2 PO (09:40)
== END 2017-01-04 18:30 | disposition home health service (06) | DRG 507 ==
LOC: C.MSN 16:10
PROVIDERS: ADMIT Orthopaedic Surgery; ATTEND Orthopaedic Surgery
PROC: 0H9 Skin and Breast, Drainage (ICD-10-PCS; principal; 2017-01-02 07:15)
PROC: 0R9M00Z Drainage of Left Elbow Joint with Drainage Device, Open Approach (ICD-10-PCS; principal; 2017-01-02 07:15)
DX: M71.122 Other infective bursitis, left elbow (principal); L02.414 Cutaneous abscess of left upper limb; B95.62 Methicillin resistant Staphylococcus aureus infection as the cause of diseases classified elsewhere; E11.9 Type 2 diabetes mellitus without complications; D64.9 Anemia, unspecified; M19.90 Unspecified osteoarthritis, unspecified site; M06.9 Rheumatoid arthritis, unspecified; E86.0 Dehydration; E66.9 Obesity, unspecified; Z68.31 Body mass index [BMI] 31.0-31.9, adult; Z79.4 Long term (current) use of insulin; Z79.84 Long term (current) use of oral hypoglycemic drugs

== ENCOUNTER → 2017-01-07 | Outpatient (CLI) | payer OTHER ==
[~2017-01-07] MED LIST changes: +CEPH500C2 PO; +RFM300 PO
[2017-01-07 11:22] LABS: HEMATOCRIT 32.2 % (42-52); MEAN CELL VOLUME 84.5 fL (80-100); MEAN CORPUSCULAR HEMOGLOBIN 28.3 pg (25-34); MEAN CORPUSCULAR HGB CONC 33.5 g/dl (32-36); MEAN PLATELET VOLUME 8.1 fL (7.4-10.4); PLATELET COUNT 358 K/uL (130-400); RED BLOOD COUNT 3.81 M/uL (4.7-6.1); WHITE BLOOD COUNT 6.65 K/uL (4.8-10.8)
[2017-01-07 11:29] LABS: ALT/SGPT 12 U/L (12-78); BLOOD UREA NITROGEN 11 mg/dl (7-18); BUN/CREATININE RATIO 12.7 (10-20); CARBON DIOXIDE 24 mmol/L (21-32); CHLORIDE 103 mmol/L (98-107); CREATININE 0.84 mg/dl (0.60-1.40); GLUCOSE 182 mg/dl (70-99); POTASSIUM 4.4 mmol/L (3.5-5.1); SODIUM 136 mmol/L (136-145)
[2017-01-07 11:32] LABS: ALB/GLOB RATIO 0.6 (0.9-2); ALKALINE PHOSPHATASE 86 U/L (45-117); AST/SGOT 13 U/L (15-37)
== END | disposition home or self-care (01) ==
LOC: C.LABSPEC 10:46
PROVIDERS: ATTEND Internal Medicine Infectious Disease
DX: Z79.2 Long term (current) use of antibiotics (principal)

== ENCOUNTER → 2017-01-14 | Outpatient (CLI) | payer OTHER ==
[2017-01-14 12:08] LABS: HEMATOCRIT 36.3 % (42-52); MEAN CELL VOLUME 84.6 fL (80-100); MEAN CORPUSCULAR HEMOGLOBIN 28.4 pg (25-34); MEAN CORPUSCULAR HGB CONC 33.6 g/dl (32-36); MEAN PLATELET VOLUME 8.4 fL (7.4-10.4); PLATELET COUNT 378 K/uL (130-400); RED BLOOD COUNT 4.29 M/uL (4.7-6.1); WHITE BLOOD COUNT 7.13 K/uL (4.8-10.8)
[2017-01-14 12:40] LABS: ALT/SGPT 18 U/L (12-78); BLOOD UREA NITROGEN 15 mg/dl (7-18); BUN/CREATININE RATIO 18.2 (10-20); C-REACTIVE PROTEIN 0.91 mg/dl (0-0.29); CALCIUM 9.1 mg/dl (8.5-10.1); CARBON DIOXIDE 24 mmol/L (21-32); CHLORIDE 102 mmol/L (98-107); CREATININE 0.83 mg/dl (0.60-1.40); GLUCOSE 146 mg/dl (70-99); POTASSIUM 4.7 mmol/L (3.5-5.1); SODIUM 135 mmol/L (136-145)
[2017-01-14 12:43] LABS: ALB/GLOB RATIO 0.8 (0.9-2); ALKALINE PHOSPHATASE 82 U/L (45-117); AST/SGOT 10 U/L (15-37)
--- NOTE | 2017-02-09 08:17 | CODING QUERY NO DIAGNOSIS ---
Valid Physician Order Needed A valid physician order must be submitted in order to properly bill for the service(s) provided, including date of service(s), valid diagnosis, and physician signature. If these tests are done on a recurring basis the original physican order must be submitted in order to code and bill for the service(s) provided. Please fax us the original, signed physician order so that we may expedite billing to [phone] DOS 01/14/17 * CBC W/O DIFF * ERYTHROCYTE SEDIMENTATION RATE * BILIRUBIN, DIRECT * CMP * C-REACTIVE PROTEIN Thank you Lisseth Replaced By [facility] Information Management
== END | disposition home or self-care (01) ==
LOC: C.LABSPEC 11:38
PROVIDERS: ATTEND Internal Medicine Infectious Disease
DX: Z51.81 Encounter for therapeutic drug level monitoring (principal); Z79.2 Long term (current) use of antibiotics

== ENCOUNTER → 2017-01-18 | Outpatient (CLI) | payer OTHER | END | disposition home or self-care (01) | LOC: C.LABSPEC 16:59 | PROVIDERS: ATTEND Orthopaedic Surgery | DX: S51.802A Unspecified open wound of left forearm, initial encounter (principal); X58.XXXA Exposure to other specified factors, initial encounter ==